=== PATIENT | male | born 1930 | race Caucasian/White ===

== ENCOUNTER 2020-05-24 08:17 | Observation (INO) | payer BC, MEDICARE ==
[2020-05-24] MEDS ORDERED: SODIUM CHLORIDE 0.9% 500 ML 500 ML IV ONE (08:23)
--- NOTE | 2020-05-24 08:29 | ED ---
General Adult HPI - General Stated complaint: Chest pain Time Seen by Provider: 05/24/20 08:22 Source: patient, RN notes reviewed, old records reviewed - History of Present Illness Initial comments: 89-year-old male history of CAD status post CABG approximately 30 years ago presenting for evaluation of chest discomfort and lightheadedness. Patient states yesterday he had an episode where he felt some chest discomfort, denies prasad pain. He states he did feel lightheaded and took a nitroglycerin at this time which made his symptoms much worse. He states he took one single nitro and with time his symptoms did resolve. He did not seek medical attention at that time. He states he feels somewhat lightheaded this morning. He denies focal numbness or weakness. Denies current chest pain or chest discomfort. Denies abdominal pain nausea or vomiting. No diarrhea. No fever. No URI symptoms. He denies dyspnea. Denies lower extremity pain or swelling. He does indicate that he sometimes over does it and does not drink enough fluids. - Related Data Home Medications Medication Instructions Recorded Confirmed Metoprolol Tartrate [Lopressor] 12.5 mg PO BID 11/05/15 05/24/20 Atorvastatin [Lipitor] 40 mg PO DAILY 05/24/20 05/24/20 Cholecalciferol [Vitamin D3 (25 1,000 unit PO DAILY 05/24/20 05/24/20 Mcg = 1000 Iu)] Lisinopril-Hctz 20-25 mg 1.5 tab PO DAILY 05/24/20 05/24/20 [Zestoretic 20-25] Prevagen 1 tab PO DAILY 05/24/20 05/24/20 Previous Rx's Medication Instructions Recorded Aspirin EC [Ecotrin Low Dose] 81 mg PO DAILY #30 tablet. 05/03/14 Nitroglycerin Sl Tabs [Nitrostat] 0.4 mg SUBLINGUAL Q5M PRN #25 tab 05/03/14 Allergies Allergy/AdvReac Type Severity Reaction Status Date / Time adhesive AdvReac Unknown Verified 05/24/20 09:05 Review of Systems ROS Statement: Those systems with pertinent positive or pertinent negative responses have been documented in the HPI. ROS Other: All systems not noted in ROS Statement are negative. Past Medical History Past Medical History: Coronary Artery Disease (CAD), Hyperlipidemia, Hypertension Additional Past Medical History / Comment(s): Bun and Creat issues,MURMUR, GOUT, UMBILICAL HERNIA, CONSTIPATION, History of Any Multi-Drug Resistant Organisms: None Reported Past Surgical History: Coronary Bypass/CABG, Heart Catheterization, Joint Replacement, Tonsillectomy Additional Past Surgical History / Comment(s): , RT HIP REPLACEMENT, TRIPLE BYPASS SX, CATARACTS, HEMRROIDECTOMY, SCHRAPNEL REMOVED 1952,RT KNEE SX HAD A S EPEARTED MUSCLE FROM HIP TO KNEE. Past Anesthesia/Blood Transfusion Reactions: No Reported Reaction Past Psychological History: No Psychological Hx Reported Past Alcohol Use History: Daily Past Drug Use History: None Reported General Exam General appearance: alert, in no apparent distress Head exam: Present: atraumatic, normocephalic Eye exam: Present: normal appearance, PERRL ENT exam: Present: mucous membranes dry Neck exam: Present: normal inspection. Absent: tenderness, meningismus Respiratory exam: Present: normal lung sounds bilaterally. Absent: respiratory distress, wheezes Cardiovascular Exam: Present: normal rhythm, bradycardia GI/Abdominal exam: Present: soft. Absent: distended, tenderness, guarding, rebound Extremities exam: Present: normal inspection, normal capillary refill. Absent: pedal edema Neurological exam: Present: alert, oriented X3 Psychiatric exam: Present: normal affect, normal mood Skin exam: Present: warm, dry, intact. Absent: cyanosis, diaphoretic Course Vital Signs 05/24/20 05/24/20 08:29 08:36 Temperature 97.7 F Pulse Rate 48 L Pulse Rate [ 48 L Apical] Respiratory 18 Rate Blood Pressure 184/83 O2 Sat by Pulse 99 Oximetry EKG Findings - EKG Comments: EKG Findings:: EKG: Sinus bradycardia, rate of 50, DE interval 164, QRS duration 98, QTC 417, no ST segment elevation. Medical Decision Making - Medical Decision Making 89-year-old male with an episode of chest discomfort yesterday as well as lightheadedness. Patient has no complaints time my evaluation. He has stable vitals, EKG showing sinus bradycardia with no ST segment elevation. Chest x-ray performed, showing hyperinflation with no acute findings. He has normal white b lood cell count, hemoglobin of 12.7. He has mild renal insufficiency creatinine 1.28. Initial troponin is negative. Electrolytes are within normal limits with the exception of mild hyperkalemia at 5.3. Given the past medical history and symptoms he will be kept in observation for cervical cardiac enzyme, telemetry, cardiology consultation. I discussed case both with Dr. Gerardo and Dr. [place] cooper for cardiology. - Lab Data Result diagrams: 05/24/20 08:25 05/24/20 08:25 Lab Results 05/24/20 05/24/20 05/24/20 Range/Units 08:25 08:25 08:25 WBC 5.6 (3.8-10.6) k/uL RBC 3.96 L (4.30-5.90) m/uL Hgb 12.7 L (13.0-17.5) gm/dL Hct 39.3 (39.0-53.0) % MCV 99.1 (80.0-100.0) fL MCH 32.1 (25.0-35.0) pg MCHC 32.4 (31.0-37.0) g/dL RDW 12.9 (11.5-15.5) % Plt Count 101 L (150-450) k/uL Neutrophils % 63 % Lymphocytes % 24 % Monocytes % 6 % Eosinophils % 3 % Basophils % 0 % Neutrophils # 3.6 (1.3-7.7) k/uL Lymphocytes # 1.4 (1.0-4.8) k/uL Monocytes # 0.3 (0-1.0) k/uL Eosinophils # 0.2 (0-0.7) k/uL Basophils # 0.0 (0-0.2) k/uL PT 9.9 (9.0-12.0) sec INR 0.9 (<1.2) APTT 23.6 (22.0-30.0) sec Sodium 138 (137-145) mmol/L Potassium 5.3 H (3.5-5.1) mmol/L Chloride 109 H (98-107) mmol/L Carbon Dioxide 22 (22-30) mmol/L Anion Gap 7 mmol/L BUN 36 H (9-20) mg/dL Creatinine 1.28 H (0.66-1.25) mg/dL Est GFR (CKD-EPI)AfAm 58 (>60 ml/min/1.73 sqM) Est GFR (CKD-EPI)NonAf 50 (>60 ml/min/1.73 sqM) Glucose 91 (74-99) mg/dL Calcium 8.9 (8.4-10.2) mg/dL Magnesium 1.9 (1.6-2.3) mg/dL Total Bilirubin 0.9 (0.2-1.3) mg/dL AST 35 (17-59) U/L ALT 25 (4-49) U/L Alkaline Phosphatase 75 (38-126) U/L Troponin I (0.000-0.034) ng/mL Total Protein 6.6 (6.3-8.2) g/dL Albumin 3.9 (3.5-5.0) g/dL 05/24/20 Range/Units 08:25 WBC (3.8-10.6) k/uL RBC (4.30-5.90) m/uL Hgb (13.0-17.5) gm/dL Hct (39.0-53.0) % MCV (80.0-100.0) fL MCH (25.0-35.0) pg MCHC (31.0-37.0) g/dL RDW (11.5-15.5) % Plt Count (150-450) k/uL Neutrophils % % Lymphocytes % % Monocytes % % Eosinophils % % Basophils % % Neutrophils # (1.3-7.7) k/uL Lymphocytes # (1.0-4.8) k/uL Monocytes # (0-1.0) k/uL Eosinophils # (0-0.7) k/uL Basophils # (0-0.2) k/uL PT (9.0-12.0) sec INR (<1.2) APTT (22.0-30.0) sec Sodium (137-145) mmol/L Potassium (3.5-5.1) mmol/L Chloride (98-107) mmol/L Carbon Dioxide (22-30) mmol/L Anion Gap mmol/L BUN (9-20) mg/dL Creatinine (0.66-1.25) mg/dL Est GFR (CKD-EPI)AfAm (>60 ml/min/1.73 sqM) Est GFR (CKD-EPI)NonAf (>60 ml/min/1.73 sqM) Glucose (74-99) mg/dL Calcium (8.4-10.2) mg/dL Magnesium (1.6-2.3) mg/dL Total Bilirubin (0.2-1.3) mg/dL AST (17-59) U/L ALT (4-49) U/L Alkaline Phosphatase (38-126) U/L Troponin I 0.019 (0.000-0.034) ng/mL Total Protein (6.3-8.2) g/dL Albumin (3.5-5.0) g/dL Disposition Clinical Impression: Chest pain, Dehydration Disposition: ADMITTED IP TO THIS [facility] Condition: Stable Is patient prescribed a controlled substance at d/c from ED?: No Referrals: Gino Callejas MD [Primary Care Provider] - 1-2 days Decision to Admit Reason: Admit from EC Decision Date: 05/24/20 Decision Time: 09:41
[2020-05-24 08:33] LABS: Basophils % (A) 0 %; Eosinophils # (A) 0.2 k/uL (0-0.7); Eosinophils % (A) 3 %; HCT 39.3 % (39.0-53.0); HGB 12.7 gm/dL (13.0-17.5); Lymphocytes # (A) 1.4 k/uL (1.0-4.8); Lymphocytes % (A) 24 %; MCH 32.1 pg (25.0-35.0); MCHC 32.4 g/dL (31.0-37.0); MCV 99.1 fL (80.0-100.0); Mean Platelet Volume 10.7; Monocytes # (A) 0.3 k/uL (0-1.0); Monocytes % (A) 6 %; Neutrophils # (A) 3.6 k/uL (1.3-7.7); Neutrophils % (A) 63 %; Platelet Count 101 k/uL (150-450); RBC 3.96 m/uL (4.30-5.90); RDW 12.9 % (11.5-15.5); WBC 5.6 k/uL (3.8-10.6)
[2020-05-24 08:46] LABS: INR 0.9 (<1.2); Partial Thromboplastin Time 23.6 sec (22.0-30.0); Prothrombin Time 9.9 sec (9.0-12.0)
[2020-05-24 08:47] LABS: Albumin 3.9 g/dL (3.5-5.0); Calcium 8.9 mg/dL (8.4-10.2); Magnesium 1.9 mg/dL (1.6-2.3); Potassium 5.3 mmol/L (3.5-5.1); Total Bilirubin 0.9 mg/dL (0.2-1.3); Total Protein 6.6 g/dL (6.3-8.2)
--- NOTE | 2020-05-24 08:52 | XR ---
EXAMINATION TYPE: XR chest 2V DATE OF EXAM: 05/24/2020 COMPARISON: 11/05/2015 INDICATION: Chest pain, dysrhythmia TECHNIQUE: Frontal and lateral views of the chest are obtained. FINDINGS: The heart size is normal. The pulmonary vasculature is normal. The lungs are clear. Hyperinflation flattening the diaphragms can be compatible COPD. Sternotomy wire s are present from prior CABG. IMPRESSION: 1. No acute pulmonary process. 2. COPD
[2020-05-24] MEDS ORDERED: ASPIRIN 325 MG TAB PO STA (09:37)
[2020-05-24] MEDS ORDERED: ACETAMINOPHEN TAB 325 MG TAB PO PRN (09:38)
[2020-05-24] MEDS ORDERED: NALOXONE 0.4 MG/ML 1 ML VIAL IV PRN (09:38)
[2020-05-24] MEDS: SODIUM CHLORIDE 0.9% 1,000 ML IV SCH (10:16)
--- NOTE | 2020-05-24 11:35 | CONS ---
CONSULTATION Mr. Xie is an 89-year-old male with a known history of coronary artery disease who presented to the hospital with symptoms of dizziness. His symptoms started yesterday when he was eating lunch, felt dizzy, so he took a nitroglycerin. He had no chest discomfort at all and his breathing has been stable. Subsequently, today after he woke up, he felt somewhat dizzy, not feeling well, but with no chest pain. No change in his breathing. He checked his blood pressure, was on the low side and he came to the hospital. His activity level has been stable without any significant changes. He denies any peripheral edema. No palpitation. He felt almost syncopal after he took his nitroglycerin, but did not feel full syncopal episode. He has a known history of coronary artery disease, status post coronary artery bypass grafting, performed in 1988. At that time he received a MOHAMUD to LAD, saphenous vein graft to the ramus, circumflex and RCA. His most recent cardiac catheterization was performed 2014, was found to have significant distal left main, 100% proximal circumflex, 100% proximal PDA, patent graft to the LAD, PDA and the obtuse marginal branch with occluded ramus intermedius. His last echocardiogram was performed in April of this year that revealed a preserved systolic function with evidence of mild aortic regurgitation, moderate aortic stenosis with a mean gradient of 25 mmHg. His coronary risk factors are remarkable for hyperlipidemia. He is nondiabetic, non smoker and hypertension. MEDICATION: His medications at home included aspirin, lisinopril 80 mg daily, lisinopril HCT 20-25 mg daily, metoprolol 25 mg daily, probiotic, and vitamin D. REVIEW OF SYSTEMS: RESPIRATORY SYSTEM: He has no documented history of asthma, emphysema or bronchitis. GI SYSTEM: No recent GI bleeding, no peptic ulcer disease. SYSTEM: No dysuria or hematuria. NERVOUS SYSTEM: No history of stroke or seizure. PHYSICAL EXAMINATION: He is an 89-year-old male, alert, oriented, in no apparent distress. Blood pressure running in the 150s to 180s with a heart in the 40s. HEAD: Normocephalic. EYES: Sclerae nonicteric. NECK: Good upstroke, no bruit. LUNGS: Clear to auscultation. HEART: Regular rate and rhythm. S1, S2. No S3 with systolic ejection murmur, heard at the base. No diastolic murmur, no rub. ABDOMEN: Soft, nontender. Positive bowel sounds, no organomegaly. EXTREMITIES: No edema, intact pulses. LAB DATA: Revealed potassium 5.3, BUN and creatinine 36 and 1.28. Troponin of 0.019. Hemoglobin of 12.7. EKG revealed sinus bradycardia, rate of 50, normal axis and intervals. No acute changes. Chest x-ray shows no acute infiltrate. IMPRESSION: 1. Episode of dizziness, probably exacerbated by the nitroglycerin. 2. History of coronary artery disease, status post coronary bypass grafting with no evidence of recurrent angina. 3. Dehydration. 4. History of moderate aortic stenosis. 5. Hypertension. 6. Hyperlipidemia. 7. Bradycardia. RECOMMENDATION: From the cardiac standpoint, I will hold his beta kamala. Patient will be hydrated. I will restart the lisinopril, but will hold his diuretics. Will follow his renal function and depending on his progress, further recommendation will be made. Thank you for this consult. Will follow with you. ELLEN / MICHAELN: [id number] /
[2020-05-24] MEDS: ATORVASTATIN 40 MG TAB PO SCH (12:17)
[2020-05-24] MEDS: LISINOPRIL 10 MG TAB PO SCH ×2 (13:36→20:44)
--- NOTE | 2020-05-24 19:04 | P.HPIM ---
History of Present Illness H&P Date: 05/24/20 Chief Complaint: Dizziness Patient is a 89-year-old male with a known history of coronary artery bypass graft about 30 years ago, hypertension, hyperlipidemia came to ER with complaints of dizziness and lightheadedness. Patient states that he usually gets dizzy after moving grass and shoveling. Yesterday while he was having lunch he bent over to get some soup when he felt sudden dizziness. Patient did take nitro pill thinking that it may help him, which made him worse and he knocked backwards. Again today morning after having coffee patient felt like losing strength and blood pressure was checked at that time found to be 90/40 and patient felt very weak and shaky which made him to come to ER. Patient did felt some chest discomfort. Currently denies any chest pain or shortness of. Denied any nausea vomiting abdominal pain or diarrhea. No recent illnesses. No dysuria or hematuria. Denied any leg swelling. Laboratory data showed deletion 5.6, hemoglobin 12.7, platelets 101 Sodium 138, potassium to 5.3, Coreg 23, BUE and 36 and creatinine 1.28 Troponin 0.019 Living assessment elevated next and magnesium is 1.9 Chest x-ray showed no acute pulmonary process. COPD EKG showed sinus bradycardia with heart rate 50 On admission blood pressure is 184/83, improved to 152/79 and heart rate 48 Review of Systems Constitutional: Patient denies any fever or chills . generalized weakness noweight loss. Abdomen: Patient denied nausea vomiting and diarrhea and abdominal pain. Cardiovascular: Patient denies any chest pain or short of breath no palpitations. Respiratory: patient denied any cough is from production. No shortness of breath Neurologic: Patient denied any numbness or tingling headache. Dizziness and lightheadedness. Musculoskeletal: Patient denies any complaints of joint swelling or deformity. Skin: Negative Psychiatric: Negative Endocrine: No heat or cold intolerance. No recent weight gain. Genitourinary: No dysuria or hematuria. All other 14 point ROS negative except the above Past Medical History Past Medical History: Coronary Artery Disease (CAD), Hyperlipidemia, Hypertension Additional Past Medical History / Comment(s): Bun and Creat issues,MURMUR, GOUT, UMBILICAL HERNIA, CONSTIPATION, History of Any Multi-Drug Resistant Organisms: None Reported Past Surgical History: Coronary Bypass/CABG, Heart Catheterization, Joint Replacement, Tonsillectomy Additional Past Surgical History / Comment(s): , RT HIP REPLACEMENT, TRIPLE BYPASS SX, CATARACTS, HEMRROIDECTOMY, SCHRAPNEL REMOVED 195,RT KNEE SX HAD A SEPEARTED MUSCLE FROM HIP TO KNEE. Past Anesthesia/Blood Transfusion Reactions: No Reported Reaction Past Psychological History: No Psychological Hx Reported Past Alcohol Use History: Daily Past Drug Use History: None Reported - Past Family History Mother Family Medical History: Coronary Artery Disease (CAD) Father Family Medical History: No Reported History Medications and Allergies Home Medications Medication Instructions Recorded Confirmed Type Aspirin EC [Ecotrin Low Dose] 81 mg PO DAILY #30 tablet. 05/03/14 05/24/20 Rx Nitroglycerin Sl Tabs [Nitrostat] 0.4 mg SUBLINGUAL Q5M PRN #25 tab 05/03/14 05/24/20 Rx Metoprolol Tartrate [Lopressor] 12.5 mg PO BID 11/05/15 05/24/20 History Atorvastatin [Lipitor] 40 mg PO DAILY 05/24/20 05/24/20 History Cholecalciferol [Vitamin D3 (25 1,000 unit PO DAILY 05/24/20 05/24/20 History Mcg = 1000 Iu)] Lisinopril-Hctz 20-25 mg 1.5 tab PO DAILY 05/24/20 05/24/20 History [Zestoretic 20-25] Prevagen 1 tab PO DAILY 05/24/20 05/24/20 History Allergies Allergy/AdvReac Type Severity Reaction Status Date / Time adhesive AdvReac Unknown Verified 05/24/20 09:05 Physical Exam Vitals: Vital Signs Temp Pulse Pulse Resp BP Pulse Ox 05/24/20 10:23 97.7 F 48 L 18 152/79 97 05/24/20 08:36 48 L 05/24/20 08:29 97.7 F 48 L 18 184/83 99 Intake and Output 05/23/20 05/24/20 05/24/20 22:59 06:59 14:59 Other: Weight 93.44 kg PHYSICAL EXAMINATION: Patient is lying in the bed comfortably, no acute distress, awake alert and oriented.. HEENT: Normocephalic. Neck is supple. Pupils reactive. Nostrils clear. Oral cavity is moist. Ears reveal no drainage. Neck reveals no JVD, carotid bruits, or thyromegaly. CHEST EXAMINATION: Trachea is central. Symmetrical expansion. Lung wynn clear to auscultation and percussion. CARDIAC: Normal S1, S2 with no gallops. Systolic murmur. ABDOMEN: Soft. Bowel sounds normal. No organomegaly. No abdominal bruits. Extremities: reveal no edema. No clubbing or cyanosis Neurologically awake, alert, oriented x3 with well-coordinated movements. No focal deficits noted Skin: No rash or skin lesions. Psychiatric: Coperative. Nonsuicidal Musculoskeletal: No joint swelling or deformity. Normal range of motion. Results CBC & Chem 7: 05/24/20 08:25 05/24/20 08:25 Labs: Abnormal Lab Results - Last 24 Hours (Table) 05/24/20 05/24/20 Range/Units 08:25 08:25 RBC 3.96 L (4.30-5.90) m/uL Hgb 12.7 L (13.0-17.5) gm/dL Plt Count 101 L (150-450) k/uL Potassium 5.3 H (3.5-5.1) mmol/L Chloride 109 H (98-107) mmol/L BUN 36 H (9-20) mg/dL Creatinine 1.28 H (0.66-1.25) mg/dL Thrombosis Risk Factor Assmnt - DVT/VTE Prophylaxis DVT/VTE Prophylaxis: Pharmacologic Prophylaxis ordered Assessment and Plan Assessment: Dizziness and lightheadedness likely due to medication use as well as bradycardia. Dehydration and volume depletion with elevated BUN level Mild acute kidney injury with creatinine level 1.28 History of coronary artery disease status post CABG 30 years ago Hypertension Hyperlipidemia History of heart normal History of gout History of alcohol use DVT prophylaxis heparin subcu Plan: Patient will be continued on gentle hydration. Encourage oral intake. Metoprolol and lisinopril/hydrochlorothiazide is on hold. Monitor electrolytes. Cardiology was consulted. Further recommendations based on the clinical course. Time with Patient: Greater than 30
[2020-05-24] MEDS ORDERED: LISINOPRIL 10 MG TAB PO SCH (21:00)
[2020-05-25] MEDS: SODIUM CHLORIDE 0.9% 1,000 ML IV SCH (00:08)
[2020-05-25 04:16] VITALS: PULSE 56
[2020-05-25 07:56] LABS: Calcium 8.9 mg/dL (8.4-10.2); Potassium 5.1 mmol/L (3.5-5.1)
[2020-05-25] MEDS: LISINOPRIL 10 MG TAB PO SCH (08:32)
[2020-05-25] MEDS: ATORVASTATIN 40 MG TAB PO SCH (08:32)
[2020-05-25 08:38] VITALS: BP 171/87; RESP 18; TEMP 97.7
[2020-05-25] MEDS ORDERED: CHOLECALCIFEROL 1,000 UNIT TAB PO SCH (09:00)
[2020-05-25] MEDS ORDERED: ASPIRIN 81 MG PO SCH (09:00)
--- NOTE | 2020-05-25 09:33 | PN ---
PROGRESS NOTE Mr. Xie is an 89-year-old male with known history of coronary artery disease who presented with symptoms of dizziness, worse after taking nitroglycerin sublingually. He is feeling better today. His breathing is stable. He denies any chest pain. He denies any dizziness, palpitation. He denies any nausea. He has been ambulating without difficulty. He continues to be on aspirin once a day, lisinopril 10 mg twice a day, Lipitor 40 mg daily. PHYSICAL EXAMINATION: Blood pressure running in the 150s with a heart rate in the 50s. LUNGS: Clear. HEART: Regular rate and rhythm, S1, S2. No S3 with systolic murmur, ejection type. No diastolic murmur, no rub. ABDOMEN: Soft, nontender. EXTREMITIES: No edema. LAB DATA: Are pending from today. His troponins are 0.019, 0.014 and 0.013. IMPRESSION: 1. Dizziness, appears to be related to the nitroglycerin. No evidence of arrhythmia. 2. History of coronary artery disease, status post coronary artery bypass grafting. No evidence of angina pectoris. 3. Dehydration. 4. Hypertension. RECOMMENDATION: I will review the results of his lab data and depending on that, I will adjust the dose of lisinopril. I will stay off the metoprolol at this time. Increase his activity. If he remains stable, I would expect he should be able to be discharged home today. ELLEN / DES: [id number] /
== END 2020-05-25 12:19 | disposition home or self-care (01) ==
LOC: EC 08:17 → 3NCARDOBS 09:38
PROVIDERS: ADMIT Internal Medicine; ATTEND Internal Medicine
DX: E86.0 Dehydration (principal); I25.10 Atherosclerotic heart disease of native coronary artery without angina pectoris; I10 Essential (primary) hypertension; R00.1 Bradycardia, unspecified; R01.1 Cardiac murmur, unspecified; E78.5 Hyperlipidemia, unspecified; M10.9 Gout, unspecified; K42.9 Umbilical hernia without obstruction or gangrene; K59.00 Constipation, unspecified; E87.5 Hyperkalemia; J44.9 Chronic obstructive pulmonary disease, unspecified; N17.9 Acute kidney failure, unspecified; I35.0 Nonrheumatic aortic (valve) stenosis; Z95.1 Presence of aortocoronary bypass graft; Z96.641 Presence of right artificial hip joint; Z98.49 Cataract extraction status, unspecified eye; Z98.890 Other specified postprocedural states; Z82.49 Family history of ischemic heart disease and other diseases of the circulatory system; Z79.82 Long term (current) use of aspirin; Z79.899 Other long term (current) drug therapy
CPT/HCPCS: 96360; 99285; 36415; 93005; 80053; 80048; 83735; 84484; 85025; 85610; 85730; 71046; G0378 ×2; U0003

== ENCOUNTER 2020-06-23 14:39 | Observation (INO) | payer MEDICARE ==
[2020-06-23] MEDS ORDERED: diphenhydrAMINE 50 MG/ML 1 ML VIAL IVP STA (14:48)
[2020-06-23] MEDS ORDERED: methylPREDNISolone SOD SUCCI 125 MG/2 ML VIAL IV STA (14:48)
[2020-06-23] MEDS ORDERED: EPINEPHrine 1 MG/ML 1 ML AMP IM STA (14:49)
--- NOTE | 2020-06-23 14:57 | ED ---
General Adult HPI - General Chief complaint: Allergic Reaction Stated complaint: Allergic Reaction Time Seen by Provider: 06/23/20 14:45 Source: patient, EMS, RN notes reviewed, old records reviewed Mode of arrival: EMS Limitations: no limitations - History of Present Illness Initial comments: This is an 89-year-old male who presents to the emergency department complaining that he was stung by a bee in the right ear. Patient states about [address] he was stung he felt lightheaded and fell to the ground. Patient states he has some skin tears on his arms. Patient states his tongue got swollen and he feels tight in his chest. Patient states she did not pass out completely but he was very lightheaded and a little confused when she was on the ground. Patient denies headache patient denies numbness or weakness. Patient denies chest pain or palpitations. Patient denies shortness of breath. Patient states currently he feels a little tightness chest and has tongue swelling. - Related Data Home Medications Medication Instructions Recorded Confirmed Atorvastatin [Lipitor] 40 mg PO DAILY 05/24/20 05/24/20 Cholecalciferol [Vitamin D3 (25 1,000 unit PO DAILY 05/24/20 05/24/20 Mcg = 1000 Iu)] Prevagen 1 tab PO DAILY 05/24/20 05/24/20 Previous Rx's Medication Instructions Recorded Aspirin EC [Ecotrin Low Dose] 81 mg PO DAILY #30 tablet. 05/03/14 Nitroglycerin Sl Tabs [Nitrostat] 0.4 mg SUBLINGUAL Q5M PRN #25 tab 05/03/14 lisinopriL [Zestril] 10 mg PO BID #180 tab 05/25/20 Allergies Allergy/AdvReac Type Severity Reaction Status Date / Time bee venom protein (honey bee) Allergy Anaphylaxis Verified 06/23/20 14:48 adhesive AdvReac Unknown Verified 05/24/20 09:05 Review of Systems ROS Statement: Those systems with pertinent positive or pertinent negative responses have been documented in the HPI. ROS Other: All systems not noted in ROS Statement are negative. Past Medical History Past Medical History: Coronary Artery Disease (CAD), Hyperlipidemia, Hypertension Additional Past Medical History / Comment(s): Bun and Creat issues,MURMUR, GOUT, UMBILICAL HERNIA, CONSTIPATION, History of Any Multi-Drug Resistant Organisms: None Reported Past Surgical History: Coronary Bypass/CABG, Heart Catheterization, Joint Replacement, Tonsillectomy Additional Past Surgical History / Comment(s): , RT HIP REPLACEMENT, TRIPLE BYPASS SX, CATARACTS, HEMRROIDECTOMY, SCHRAPNEL REMOVED 1952,RT KNEE SX HAD A S EPEARTED MUSCLE FROM HIP TO KNEE. Past Anesthesia/Blood Transfusion Reactions: No Reported Reaction Past Psychological History: No Psychological Hx Reported Smoking Status: Former smoker Past Alcohol Use History: Daily Past Drug Use History: None Reported - Past Family History Mother Family Medical History: Coronary Artery Disease (CAD) Father Family Medical History: No Reported History General Exam - General Exam Comments Initial Comments: GENERAL: Patient is well-developed and well-nourished. Patient is nontoxic and well- hydrated and is in mild distress. ENT: Neck is soft and supple. No significant lymphadenopathy is noted. Oropharynx is clear. Patient's tongue is swollen Moist mucous membranes. Neck has full range of motion without eliciting any pain. EYES: The sclera were anicteric and conjunctiva were pink and moist. Extraocular movements were intact and pupils were equal round and reactive to light. Eyelids were unremarkable. PULMONARY: Unlabored respirations. Good breath sounds bilaterally. No audible rales rhonchi or wheezing was noted. CARDIOVASCULAR: There is a regular rate and rhythm without any murmurs gallops or rubs. ABDOMEN: Soft and nontender with normal bowel sounds. SKIN: Skin is clear with no lesions or rashes and otherwise unremarkable. NEUROLOGIC: Patient is alert and oriented x3. Cranial nerves II through XII are grossly intact. Motor and sensory are also intact. Normal speech, volume and content. Symmetrical smile. MUSCULOSKELETAL: Normal extremities with adequate strength and full range of motion. LYMPHATICS: No significant lymphadenopathy is noted PSYCHIATRIC: Normal psychiatric evaluation. Limitations: no limitations Course Vital Signs 06/23/20 06/23/20 14:43 15:40 Temperature 98.2 F Pulse Rate 76 57 L Respiratory 18 18 Rate Blood Pressure 120/51 120/51 O2 Sat by Pulse 96 120 H Oximetry Medical Decision Making - Medical Decision Making EKG shows sinus rhythm at 74 bpm OH interval 142 QRS is 88 QT interval 44 QTC is 448. EKG shows no ST segment elevation or depression. - Lab Data Result diagrams: 06/23/20 15:14 06/23/20 15:14 Lab Results 0806/23/20 06/23/20 Range/Units 15:14 15:14 15:14 WBC 6.3 (3.8-10.6) k/uL RBC 3.70 L (4.30-5.90) m/uL Hgb 12.0 L (13.0-17.5) gm/dL Hct 36.9 L (39.0-53.0) % MCV 99.8 (80.0-100.0) fL MCH 32.4 (25.0-35.0) pg MCHC 32.4 (31.0-37.0) g/dL RDW 13.0 (11.5-15.5) % Plt Count 118 L (150-450) k/uL Neutrophils % 69 % Lymphocytes % 23 % Monocytes % 4 % Eosinophils % 2 % Basophils % 0 % Neutrophils # 4.3 (1.3-7.7) k/uL Lymphocytes # 1.4 (1.0-4.8) k/uL Monocytes # 0.2 (0-1.0) k/uL Eosinophils # 0.1 (0-0.7) k/uL Basophils # 0.0 (0-0.2) k/uL Sodium 137 (137-145) mmol/L Potassium 4.6 (3.5-5.1) mmol/L Chloride 109 H (98-107) mmol/L Carbon Dioxide 24 (22-30) mmol/L Anion Gap 4 mmol/L BUN 28 H (9-20) mg/dL Creatinine 1.26 H (0.66-1.25) mg/dL Est GFR (CKD-EPI)AfAm 59 (>60 ml/min/1.73 sqM) Est GFR (CKD-EPI)NonAf 51 (>60 ml/min/1.73 sqM) Glucose 118 H (74-99) mg/dL Calcium 8.7 (8.4-10.2) mg/dL Total Bilirubin 0.9 (0.2-1.3) mg/dL AST 30 (17-59) U/L ALT 19 (4-49) U/L Alkaline Phosphatase 76 (38-126) U/L Troponin I 0.047 H* (0.000-0.034) ng/mL Total Protein 5.8 L (6.3-8.2) g/dL Albumin 3.4 L (3.5-5.0) g/dL Critical Care Time Critical Care Time: Yes Total Critical Care Time: 35 Disposition Clinical Impression: Anaphylaxis, Elevated troponin Disposition: ADMITTED IP TO THIS [facility] Referrals: Gino Callejas MD [Primary Care Provider] - 1-2 days Time of Disposition: 17:02
[2020-06-23 15:31] LABS: Basophils % (A) 0 %; Eosinophils # (A) 0.1 k/uL (0-0.7); Eosinophils % (A) 2 %; HCT 36.9 % (39.0-53.0); Lymphocytes # (A) 1.4 k/uL (1.0-4.8); Lymphocytes % (A) 23 %; MCH 32.4 pg (25.0-35.0); MCHC 32.4 g/dL (31.0-37.0); MCV 99.8 fL (80.0-100.0); Mean Platelet Volume 10.6; Monocytes # (A) 0.2 k/uL (0-1.0); Monocytes % (A) 4 %; Neutrophils # (A) 4.3 k/uL (1.3-7.7); Neutrophils % (A) 69 %; Platelet Count 118 k/uL (150-450); WBC 6.3 k/uL (3.8-10.6)
[2020-06-23 15:42] LABS: Albumin 3.4 g/dL (3.5-5.0); Calcium 8.7 mg/dL (8.4-10.2); Potassium 4.6 mmol/L (3.5-5.1); Total Bilirubin 0.9 mg/dL (0.2-1.3); Total Protein 5.8 g/dL (6.3-8.2)
[2020-06-23] MEDS ORDERED: NITROGLYCERIN SL TABS 0.4 MG TAB SUBLINGUAL PRN (17:02)
[2020-06-23] MEDS ORDERED: diphenhydrAMINE 50 MG/ML 1 ML VIAL IVP PRN (18:43)
[2020-06-23] MEDS: NITROGLYCERIN OINT 1 INCH/GM PACKET TOPICAL SCH ×2 (19:05→22:56)
[2020-06-23 20:45] LABS: Glucose,Whole Blood 191 mg/dL (75-99)
[2020-06-23] MEDS: methylPREDNISolone SOD SUCCI 125 MG/2 ML VIAL IV SCH (22:55)
[2020-06-24 04:36] LABS: Cholesterol 103 mg/dL (<200); HDL Cholesterol 36 mg/dL (40-60); LDL Cholesterol,Calculated 46 mg/dL (0-99); Triglycerides 107 mg/dL (<150)
[2020-06-24 05:51] LABS: Glucose,Whole Blood 144 mg/dL (75-99)
[2020-06-24] MEDS: NITROGLYCERIN OINT 1 INCH/GM PACKET TOPICAL SCH (06:01)
[2020-06-24] MEDS: methylPREDNISolone SOD SUCCI 125 MG/2 ML VIAL IV SCH ×3 (06:23→17:18)
[2020-06-24] MEDS: INSULIN ASPART (NovoLOG) 100 UNIT/ML VIAL SQ SCH ×4 (06:31→20:51)
--- NOTE | 2020-06-24 08:47 | P.HPIM ---
History of Present Illness This is a pleasant 89 years old male with past medical history of coronary artery disease status post bypass graft about 30 years ago, hypertension, hyperlipidemia Was recently discharged from hospital from 05/24-05/25 for dizziness And his been evaluated by inclusion paraeducator at that time. The presents because his stomach with a be behind his ear and fell almost passed out with tongue swelling. Patient was doing his lawn, when he got stung by a bee right above his right ear, shortly after that he crashed on the floor and passed out and he had to crawl to his house , he replaced his left forearm which is in bandage now, he managed to get up in his house and drove his car to his daughter who called the ambulance for him. During the incident patient denies chest pain, no dyspnea, no vomiting or palpitation. He had some functional and at that time. Currently he denies chest pain or dyspnea or any other symptoms, he states his back to his normal self and he wants to be discharged, he wants to sign himself out including imaging is not his discharge today, risk of leaving AMA is explained for the patient including but not limited to the risk of and he verbalized understanding and acceptance vitals are stable. Unremarkable CBC and BMP except for mildly elevated creatinine at 1.26, baseline is normal at 1.23. Troponin is elevated 0.04, 0.05 and 0.04. EKG showing sinus rhythm with marked sinus arrhythmia In the ED patient started on some Medrol 60 mg and Versed 1 dose of epinephrine 1 mg. And be has bee added to his ALLERGY list Review of Systems CONSTITUTIONAL: No fever, no malaise, no fatigue. HEENT: No recent visual problems or hearing problems. Denied any sore throat. CARDIOVASCULAR: No orthopnea, PND, no palpitations, no syncope. PULMONARY: No shortness of breath, no cough, no hemoptysis. GASTROINTESTINAL: No diarrhea, no nausea, no vomiting, no abdominal pain. N ormoactive bowel sounds. NEUROLOGICAL: No headaches, no weakness, no numbness. HEMATOLOGICAL: Denies any bleeding or petechiae. GENITOURINARY: Denies any burning micturition, frequency, or urgency. MUSCULOSKELETAL/RHEUMATOLOGICAL: Denies any joint pain, swelling, or any muscle pain. ENDOCRINE: Denies any polyuria or polydipsia. Past Medical History Past Medical History: Coronary Artery Disease (CAD), Hyperlipidemia, Hypertension Additional Past Medical History / Comment(s): Bun and Creat issues,MURMUR, GOUT, UMBILICAL HERNIA, CONSTIPATION, History of Any Multi-Drug Resistant Organisms: None Reported Past Surgical History: Coronary Bypass/CABG, Heart Catheterization, Joint Replacement, Tonsillectomy Additional Past Surgical History / Comment(s): , RT HIP REPLACEMENT, TRIPLE BYPASS SX, CATARACTS, HEMRROIDECTOMY, SCHRAPNEL REMOVED 1952,RT KNEE SX HAD A SEPEARTED MUSCLE FROM HIP TO KNEE. Past Anesthesia/Blood Transfusion Reactions: No Reported Reaction Past Psychological History: No Psychological Hx Reported Smoking Status: Former smoker Past Alcohol Use History: Daily Past Drug Use History: None Reported - Past Family History Mother Family Medical History: Coronary Artery Disease (CAD) Father Family Medical History: No Reported History Medications and Allergies Home Medications Medication Instructions Recorded Confirmed Type Aspirin EC [Ecotrin Low Dose] 81 mg PO DAILY #30 tablet. 05/03/14 06/23/20 Rx Nitroglycerin Sl Tabs [Nitrostat] 0.4 mg SUBLINGUAL Q5M PRN #25 tab 05/03/14 06/23/20 Rx Atorvastatin [Lipitor] 40 mg PO DAILY 05/24/20 06/23/20 History Cholecalciferol [Vitamin D3 (25 1,000 unit PO DAILY 05/24/20 06/23/20 History Mcg = 1000 Iu)] Prevagen 1 tab PO DAILY 05/24/20 06/23/20 History lisinopriL [Zestril] 10 mg PO DAILY 06/23/20 06/23/20 History Allergies Allergy/AdvReac Type Severity Reaction Status Date / Time bee venom protein (honey bee) Allergy Anaphylaxis Verified 06/23/20 18:02 adhesive AdvReac Unknown Verified 06/23/20 18:02 Physical Exam Vitals: Vital Signs Temp Pulse Pulse Resp BP BP Pulse Ox 06/24/20 04:00 97.5 F L 60 18 157/85 95 06/24/20 00:00 97.6 F 60 18 135/69 97 06/23/20 20:37 97.8 F 73 18 144/77 97 06/23/20 19:02 73 18 145/89 97 06/23/20 15:40 57 L 18 120/51 96 06/23/20 14:43 98.2 F 76 18 120/51 96 Intake and Output 06/23/20 06/24/20 06/24/20 22:59 06:59 14:59 Other: Voiding Method Toilet Toilet # Voids 1 Weight 93.44 kg 89.4 kg GENERAL: The patient is alert and oriented x3, not in any acute distress. Well developed, well nourished. HEENT: Pupils are round and equally reacting to light. EOMI. No scleral icterus. No conjunctival pallor. Normocephalic, atraumatic. No pharyngeal erythema. No thyromegaly. CARDIOVASCULAR: S1 and S2 present. No murmurs, rubs, or gallops. PULMONARY: Chest is clear to auscultation, no wheezing or crackles. ABDOMEN: Soft, nontender, nondistended, normoactive bowel sounds. No palpable organomegaly. MUSCULOSKELETAL: No joint swelling or deformity. EXTREMITIES: No cyanosis, clubbing, or pedal edema. NEUROLOGICAL: Gross neurological examination did not reveal any focal deficits. SKIN: No rashes. No petechiae Results CBC & Chem 7: 06/23/20 15:14 06/23/20 15:14 Labs: Abnormal Lab Results - Last 24 Hours (Table) 06/23/20 06/23/20 06/23/20 Range/Units 03:45 15:14 15:14 RBC 3.70 L (4.30-5.90) m/uL Hgb 12.0 L (13.0-17.5) gm/dL Hct 36.9 L (39.0-53.0) % Plt Count 118 L (150-450) k/uL Chloride 109 H (98-107) mmol/L BUN 28 H (9-20) mg/dL Creatinine 1.26 H (0.66-1.25) mg/dL Glucose 118 H (74-99) mg/dL POC Glucose (mg/dL) (75-99) mg/dL Troponin I (0.000-0.034) ng/mL Total Protein 5.8 L (6.3-8.2) g/dL Albumin 3.4 L (3.5-5.0) g/dL HDL Cholesterol 36 L (40-60) mg/dL 06/23/20 06/23/20 06/23/20 Range/Units 15:14 18:17 20:37 RBC (4.30-5.90) m/uL Hgb (13.0-17.5) gm/dL Hct (39.0-53.0) % Plt Count (150-450) k/uL Chloride (98-107) mmol/L BUN (9-20) mg/dL Creatinine (0.66-1.25) mg/dL Glucose (74-99) mg/dL POC Glucose (mg/dL) (75-99) mg/dL Troponin I 0.047 H* 0.055 H* 0.044 H* (0.000-0.034) ng/mL Total Protein (6.3-8.2) g/dL Albumin (3.5-5.0) g/dL HDL Cholesterol (40-60) mg/dL 06/23/20 06/24/20 Range/Units 20:44 05:50 RBC (4.30-5.90) m/uL Hgb (13.0-17.5) gm/dL Hct (39.0-53.0) % Plt Count (150-450) k/uL Chloride (98-107) mmol/L BUN (9-20) mg/dL Creatinine (0.66-1.25) mg/dL Glucose (74-99) mg/dL POC Glucose (mg/dL) 191 H 144 H (75-99) mg/dL Troponin I (0.000-0.034) ng/mL Total Protein (6.3-8.2) g/dL Albumin (3.5-5.0) g/dL HDL Cholesterol (40-60) mg/dL Thrombosis Risk Factor Assmnt - Choose All That Apply Any of the Below Risk Factors Present?: No Other Risk Factors: Yes Each Risk Factor Represents 3 Points: Age 75 years or older Other congenital or acquired thrombophilia - If yes, enter type in comment: No Thrombosis Risk Factor Assessment Total Risk Factor Score: 3 Thrombosis Risk Factor Assessment Level: Moderate Risk Assessment and Plan Assessment: anaphylaxis secondary to bee sting elevated troponin, rule out cardiac causes Marked sinus arrhythmia Coronary artery disease, status post bypass 3 years ago Hypertension Hyperlipidemia Plan: This is a pleasant 89 years old male who presents with possible anaphylaxis and elevated troponin . We'll do serial troponins, EKG consult. Continue with steroids . Patient is counseled to keep away from these and protect himself and also counseled about adrenalin pen. Continue same treatment. Continue with symptomatic treatment. Resume home medication. Monitor lytes and vitals. DVT and GI prophylaxis. Further recommendations of the clinical course of the patient DVT prophylaxis: Subcutaneous heparin GI Prophylaxis: Pepcid
[2020-06-24] MEDS ORDERED: FAMOTIDINE 20 MG/2 ML VIAL IV SCH (09:00)
[2020-06-24] MEDS ORDERED: ASPIRIN 325 MG TAB PO SCH (09:00)
[2020-06-24] MEDS: ATORVASTATIN 40 MG TAB PO SCH (09:23)
[2020-06-24] MEDS: lisinopriL 10 MG TAB PO SCH (09:23)
[2020-06-24] MEDS: ASPIRIN 81 MG PO SCH (09:23)
[2020-06-24] MEDS: CHOLECALCIFEROL 1,000 UNIT TAB PO SCH (09:23)
[2020-06-24] MEDS: HEPARIN SODIUM,PORCINE 5,000 UNIT/ML 1 ML VIAL SQ SCH ×2 (09:25→20:51)
--- NOTE | 2020-06-24 12:04 | CONS ---
CONSULTATION Mr. Xie is an 89-year-old male with a known history of coronary artery disease who presented after a bee sting. Apparently, he was working outdoors when he got stung by a bee, started to have headache, dizziness and tingling in the arm, went home, was starting to have generalized weakness and then he fell to the ground. He thinks he had a syncopal episode, very brief. He had some chest discomfort and subsequently came into the emergency room. He is pain free at this time and quite anxious to go home. His blood tests revealed mild troponin elevation. He has a known history of coronary artery disease, status post coronary artery bypass grafting done in 1988. His most recent cardiac catheterization was done in 2014 that showed an 80% distal left main, chronically occluded left circumflex and PDA with patent MOHAMUD to LAD, patent saphenous vein graft to the PDA and to the obtuse marginal branch. His left ventricular systolic function by echocardiography was preserved in the past. The patient is active physically, denies any significant exertional chest pain on a regular basis. Denies any palpitation. He has some dizziness. No PND. No orthopnea. No peripheral edema. His activity level has been relatively stable. His coronary risk factors are remarkable for hyperlipidemia, he is a nonsmoker, nondiabetic. MEDICATION: At home included lisinopril 10 mg daily, aspirin once a day, Lipitor 40 mg daily, vitamin D. REVIEW OF SYSTEMS: He has no documented history of asthma, emphysema or bronchitis. GI SYSTEM: No recent GI bleeding, no peptic ulcer disease. SYSTEM: No dysuria or hematuria. NERVOUS SYSTEM: No stroke or seizure. PHYSICAL EXAMINATION: He is an 89-year-old male, alert, oriented, in no apparent distress. Blood pressure running in the 130s to 150s with a heart rate in the 60s. HEAD: Normocephalic. EYES: Sclerae nonicteric. NECK: Good upstroke, no bruit, no jugular venous distention. LUNGS: Clear to auscultation. HEART: Regular rate and rhythm, S1, S2. No S3 with systolic ejection murmur heard at the base. No diastolic murmur, no rub. ABDOMEN: Soft, nontender, positive bowel sounds, no organomegaly. EXTREMITIES: No edema, intact pulses. LAB DATA: Revealed troponin 0.047, 0.055 and 0.044. Cholesterol 103, LDL of 46, BUN and creatinine 28 and 1.26. Hemoglobin of 12. EKG revealed a sinus mechanism with sinus arrhythmia, but no acute ST-segment changes. IMPRESSION: 1. Episode of chest discomfort with possible non ST-segment elevation myocardial infarction in a patient with known history of coronary artery disease, could be exacerbated by the stress of the bee sting. 2. Status post coronary artery bypass grafting. 3. History of hypertension. 4. Hyperlipidemia. RECOMMENDATION: From the cardiac standpoint, I will add oral nitrate to his regimen. Continue rest of his medical regimen. Increase his level of activity. Depending on his progress, further recommendation will be made. I would not recommend aggressive cardiac workup at this time, in view of his overall status. I have discussed those findings with the patient. Depending on his progress, he may be able to be discharged home soon and followed as an outpatient. ELLEN / DES: [id number] /
[2020-06-24 12:06] LABS: Glucose,Whole Blood 172 mg/dL (75-99)
[2020-06-24] MEDS: ISOSORBIDE MONONITRATE ER 30 MG TAB.ER.24H PO SCH (12:24)
[2020-06-24 16:50] LABS: Glucose,Whole Blood 144 mg/dL (75-99)
[2020-06-24 20:18] LABS: Glucose,Whole Blood 158 mg/dL (75-99)
[2020-06-24] MEDS ORDERED: MELATONIN 5 MG TABLET PO SCH (21:00)
[2020-06-25] MEDS: methylPREDNISolone SOD SUCCI 125 MG/2 ML VIAL IV SCH ×3 (00:04→13:04)
[2020-06-25 01:06] VITALS: RESP 18
[2020-06-25 06:10] LABS: Glucose,Whole Blood 190 mg/dL (75-99)
[2020-06-25] MEDS: INSULIN ASPART (NovoLOG) 100 UNIT/ML VIAL SQ SCH ×2 (06:59→13:04)
[2020-06-25] MEDS ORDERED: FAMOTIDINE 20 MG/2 ML VIAL IV SCH (09:00)
[2020-06-25 09:09] VITALS: BP 151/70; TEMP 97.7
[2020-06-25] MEDS: ATORVASTATIN 40 MG TAB PO SCH (09:10)
[2020-06-25] MEDS: ISOSORBIDE MONONITRATE ER 30 MG TAB.ER.24H PO SCH (09:10)
[2020-06-25] MEDS: lisinopriL 10 MG TAB PO SCH (09:10)
[2020-06-25] MEDS: CHOLECALCIFEROL 1,000 UNIT TAB PO SCH (09:10)
[2020-06-25] MEDS: ASPIRIN 81 MG PO SCH (09:10)
[2020-06-25] MEDS: HEPARIN SODIUM,PORCINE 5,000 UNIT/ML 1 ML VIAL SQ SCH (09:10)
[2020-06-25 12:27] LABS: Glucose,Whole Blood 131 mg/dL (75-99)
--- NOTE | 2020-06-25 13:46 | P.PN ---
Subjective Progress Note Date: 06/25/20 this is a pleasant 89-year-old gentleman with a known history of CAD who presented to being stung by a bee. Following that he became dizzy with tingling in his arms and a headache as well as generalized weakness. He did have a fall. He thinks he may have had a very brief syncopal episode. Had some chest discomfort and subsequently came to the emergency room. He's been pain-free since admission. He's been up walking without difficulties. He is quite anxious to be discharged. Objective - Vital Signs Vital signs: Vital Signs Temp 97.7 F 06/25/20 08:00 Pulse 64 06/25/20 08:00 Resp 18 06/25/20 04:00 BP 151/70 06/25/20 08:00 Pulse Ox 96 06/25/20 08:00 Intake & Output 06/24/20 06/25/20 06/25/20 18:59 06:59 18:59 Intake Total 1020 120 Balance 1020 120 Weight 89.7 kg Intake: Oral 1020 120 Other: Voiding Method Toilet # Voids 2 3 1 - Exam PHYSICAL EXAMINATION: HEENT: [Head is atraumatic, normocephalic. Pupils equal, round. Neck is supple. There is no elevated jugular venous pressure.] HEART EXAMINATION: [Heart sounds regular, S1 and S2 with a systolic ejection murmu] CHEST EXAMINATION:[ Lungs are clear to auscultation and precussion. No chest wall tenderness is noted on palpation or with deep breathing.] ABDOMEN: [ Soft, nontender. Bowel sounds are heard. No organomegaly noted]. EXTREMITIES:[ 2+ peripheral pulses with no evidence of peripheral edema and no calf tenderness noted]. NEUROLOGIC [patient is awake, alert and oriented x3.] . - Labs CBC & Chem 7: 06/23/20 15:14 06/23/20 15:14 Labs: Abnormal Lab Results - Last 24 Hours (Table) 06/24/20 06/24/20 06/25/20 Range/Units 16:48 20:16 06:09 POC Glucose (mg/dL) 144 H 158 H 190 H (75-99) mg/dL 06/25/20 Range/Units 12:25 POC Glucose (mg/dL) 131 H (75-99) mg/dL Assessment and Plan Assessment: #1 episode of chest discomfort with possible non-ST segment elevation MA in a patient with known history of CAD, could be exacerbated by the stress of bee sting #2 status post coronary artery bypass grafting #3 history of hypertension #4 hyperlipidemia Plan: from cardiology's perspective medications were reviewed and we will continue the same. The patient will need to be discharged home with an EpiPen. He will follow-up in the office with Dr. Sky as an outpatient. HYDRODYNAMICS PROFESSOR note has been reviewed, I agree with a documented findings and plan of care. Patient was seen and examined.
[2020-06-25 15:14] VITALS: PULSE 62
--- NOTE | 2020-06-25 21:44 | P.DS ---
Providers Date of admission: 06/23/20 17:13 Attending physician: Vivienne Galvez Consults: 06/23/20 17:02 Consult Physician Urgent Consulting Provider: [facility] Consult Reason/Comments: Elevated troponin, anaphylaxis reaction Do you want consulting provider notified?: Yes Primary care physician: Shravan Callejas Hospital Course: Diagnoses: anaphylaxis secondary to bee sting elevated troponin, suspicious for non-STEMI, health policy analyst evaluated the patient cleared him for discharge Marked sinus arrhythmia and his EKG, asymptomatic Coronary artery disease, status post bypass 3 years ago Hypertension Hyperlipidemia Hospital course: This is a pleasant 89 years old male with past medical history of coronary artery disease status post bypass graft about 30 years ago, hypertension, hyperlipidemia Was recently discharged from hospital from 05/24-05/25 for dizziness And his been evaluated by health policy analyst at that time. The presents becaus he got stung with a bee behind his right ear and fell almost passed out with tongue swelling. Patient was doing his lawn, when he got stung by a bee right above his right ear, shortly after that he crashed on the floor and passed out and he had to crawl to his house ,and then he came to emergency room where he was started on steroids and Benadryl and he felt better. Patient was found to have elevated troponin suspicious for non-STEMI, health policy analyst evaluated the patient and Dr. Sky who is his health policy analyst recommended to continue with conservative treatment Patient is monitored for more than 24 hours and he remained stable with no more tongue swelling, no breathing difficulty or respiratory issue. No chest pain. No other new complaint. Actually patient was eager to be discharged from yesterday but he agrees to stay until today and this morning he still was to go home as he is back to his normal self as he states. Patient is also good for discharge by health policy analyst team Patient will be discharged on tapering steroids. Prescription for EpiPen as provided, patient was counseled to keep away from bee venom and he agrees Problems and management plan were discussed with the patient and he verbalized understanding and acceptance Patient was found stable and can be discharged home however he needs follow-up as an outpatient. Patient was instructed to follow up with PCP Dr. Callejas within one week and with his health policy analyst Dr. Sky in 1-2 weeks and patient agrees to call and make his own appointment as today is weekend and staff could not help him with the appointments Gen: patient is a AAOx3, no distress CVS: S1-S2, RRR, no murmur Lungs: B/L CTA, no wheezing Abdomen: soft, no distention, no tenderness, positive bowel sounds Extremity: no leg edema or induration Time spent more than 35 minutes Plan - Discharge Summary New Discharge Prescriptions: New diphenhydrAMINE [Benadryl] 25 mg PO BID PRN #2 capsule PRN Reason: Allergic Reaction EPINEPHrine (Auto Inject) [Epipen] 0.3 mg IM ONCE PRN #1 pen PRN Reason: Anaphylaxis Isosorbide Mononitrate ER [Imdur] 30 mg PO DAILY #30 tab.er.24h predniSONE 10 mg PO DIRECTED #18 tab Continue Aspirin EC [Ecotrin Low Dose] 81 mg PO DAILY #30 tablet. Nitroglycerin Sl Tabs [Nitrostat] 0.4 mg SUBLINGUAL Q5M PRN #25 tab PRN Reason: Chest Pain Cholecalciferol [Vitamin D3 (25 Mcg = 1000 Iu)] 1,000 unit PO DAILY Atorvastatin [Lipitor] 40 mg PO DAILY Prevagen 1 tab PO DAILY lisinopriL [Zestril] 10 mg PO DAILY Discharge Medication List Aspirin EC [Ecotrin Low Dose] 81 mg PO DAILY #30 tablet. 05/03/14 [Rx] Nitroglycerin Sl Tabs [Nitrostat] 0.4 mg SUBLINGUAL Q5M PRN #25 tab 05/03/14 [Rx] Atorvastatin [Lipitor] 40 mg PO DAILY 05/24/20 [History] Cholecalciferol [Vitamin D3 (25 Mcg = 1000 Iu)] 1,000 unit PO DAILY 05/24/20 [History] Prevagen 1 tab PO DAILY 05/24/20 [History] lisinopriL [Zestril] 10 mg PO DAILY 06/23/20 [History] EPINEPHrine (Auto Inject) [Epipen] 0.3 mg IM ONCE PRN #1 pen 06/25/20 [Rx] Isosorbide Mononitrate ER [Imdur] 30 mg PO DAILY #30 tab.er.24h 06/25/20 [Rx] diphenhydrAMINE [Benadryl] 25 mg PO BID PRN #2 capsule 06/25/20 [Rx] predniSONE 10 mg PO DIRECTED #18 tab 06/25/20 [Rx] Follow up Appointment(s)/Referral(s): Chema Sky MD [STAFF PHYSICIAN] - 1 Week Gino Callejas MD [Primary Care Provider] - 1-2 days Patient Instructions/Handouts: Insect Bite or Sting (DC), Anaphylaxis (DC) Activity/Diet/Wound Care/Special Instructions: Heart healthy diet Activity is limited till you see your doctor Discharge Disposition: HOME SELF-CARE
== END 2020-06-25 15:14 | disposition home or self-care (01) ==
LOC: EC 14:39 → 3SCARD 17:13
PROVIDERS: ADMIT Internal Medicine; ATTEND Internal Medicine
DX: T63.441A Toxic effect of venom of bees, accidental (unintentional), initial encounter (principal); T78.2XXA Anaphylactic shock, unspecified, initial encounter; R79.89 Other specified abnormal findings of blood chemistry; I49.9 Cardiac arrhythmia, unspecified; S41.112A Laceration without foreign body of left upper arm, initial encounter; S41.111A Laceration without foreign body of right upper arm, initial encounter; R20.2 Paresthesia of skin; R51 Headache; R53.1 Weakness; R07.89 Other chest pain; R01.1 Cardiac murmur, unspecified; I25.10 Atherosclerotic heart disease of native coronary artery without angina pectoris; Z95.1 Presence of aortocoronary bypass graft; I10 Essential (primary) hypertension; E78.5 Hyperlipidemia, unspecified; W19.XXXA Unspecified fall, initial encounter; Y92.007 Garden or yard of unspecified non-institutional (private) residence as the place of occurrence of the external cause; M10.9 Gout, unspecified; K59.00 Constipation, unspecified; Z96.641 Presence of right artificial hip joint; Z87.891 Personal history of nicotine dependence; Z79.82 Long term (current) use of aspirin; Z79.899 Other long term (current) drug therapy; Z91.030 Bee allergy status; Z91.048 Other nonmedicinal substance allergy status; Z82.49 Family history of ischemic heart disease and other diseases of the circulatory system
CPT/HCPCS: 96376 ×3; 93005 ×2; 96372 ×2; 96375 ×2; 96374; 99291; 36415; 80061; 80053; 84484; 85025; G0378 ×3; J1200; J1644 ×2; J2930 ×3

== ENCOUNTER 2021-09-10 08:32 | Inpatient (IN) | payer MEDICARE ==
[2021-09-10 08:42] LABS: Glucose,Whole Blood 125 mg/dL (75-99)
[2021-09-10 09:06] LABS: Albumin 3.2 g/dL (3.5-5.0); Magnesium 1.8 mg/dL (1.6-2.3); Potassium 4.1 mmol/L (3.5-5.1); Total Bilirubin 0.6 mg/dL (0.2-1.3); Total Protein 5.6 g/dL (6.3-8.2)
--- NOTE | 2021-09-10 09:11 | ED ---
General Adult HPI - General Chief complaint: Chest Pain Stated complaint: chest tightness Time Seen by Provider: 09/10/21 08:41 Source: patient, RN notes reviewed, old records reviewed Mode of arrival: ambulatory Limitations: no limitations - History of Present Illness Initial comments: 89-year-old male with history of CAD presenting for evaluation. Patient states that his daughter had convinced him to come to the hospital. Apparently over the past one week he has complained of chest pain. He denies any pain at the time my evaluation. He denies cough or fever. Denies dyspnea. Denies abdominal pain nausea or vomiting. He states he had open-heart surgery at the age of 57. - Related Data Home Medications Medication Instructions Recorded Confirmed Cholecalciferol [Vitamin D3 (25 1,000 unit PO DAILY 05/24/20 09/10/21 Mcg = 1000 Iu)] lisinopriL [Zestril] 10 mg PO BID 06/23/20 09/10/21 Previous Rx's Medication Instructions Recorded Aspirin EC [Ecotrin Low Dose] 81 mg PO DAILY #30 tablet. 05/03/14 EPINEPHrine (Auto Inject) [Epipen] 0.3 mg IM ONCE PRN #1 pen 06/25/20 Allergies Allergy/AdvReac Type Severity Reaction Status Date / Time bee venom protein (honey bee) Allergy Anaphylaxis Verified 09/10/21 09:59 adhesive AdvReac tears off Verified 09/10/21 09:59 skin Review of Systems ROS Statement: Those systems with pertinent positive or pertinent negative responses have been documented in the HPI. ROS Other: All systems not noted in ROS Statement are negative. Past Medical History Past Medical History: Coronary Artery Disease (CAD), Hyperlipidemia, Hypertension Additional Past Medical History / Comment(s): Bun and Creat issues,MURMUR, GOUT, UMBILICAL HERNIA, CONSTIPATION, History of Any Multi-Drug Resistant Organisms: None Reported Past Surgical History: Coronary Bypass/CABG, Heart Catheterization, Joint Replacement, Tonsillectomy Additional Past Surgical History / Comment(s): , RT HIP REPLACEMENT, TRIPLE BYPASS SX, CATARACTS, HEMRROIDECTOMY, SCHRAPNEL REMOVED 1952,RT KNEE SX HAD A SEPEARTED MUSCLE FROM HIP TO KNEE. Past Anesthesia/Blood Transfusion Reactions: No Reported Reaction Past Psychological History: No Psychological Hx Reported Smoking Status: Former smoker Past Alcohol Use History: Daily Past Drug Use History: None Reported - Past Family History Mother Family Medical History: Coronary Artery Disease (CAD) Father Family Medical History: No Reported History General Exam Limitations: no limitations General appearance: alert, in no apparent distress Head exam: Present: atraumatic, normocephalic Eye exam: Present: normal appearance, PERRL ENT exam: Present: normal exam Neck exam: Present: normal inspection. Absent: tenderness, meningismus Respiratory exam: Present: normal lung sounds bilaterally. Absent: respiratory distress, wheezes Cardiovascular Exam: Present: regular rate, normal rhythm GI/Abdominal exam: Present: soft. Absent: distended, tenderness, guarding Extremities exam: Present: normal inspection, normal capillary refill. Absent: pedal edema Neurological exam: Present: alert, oriented X3, CN II-XII intact. Absent: motor sensory deficit Psychiatric exam: Present: normal affect, normal mood Skin exam: Present: warm, dry, intact. Absent: cyanosis, diaphoretic Course Vital Signs 09/10/21 08:35 Temperature 98.0 F Pulse Rate 74 Respiratory 18 Rate Blood Pressure 133/68 O2 Sat by Pulse 100 Oximetry EKG Findings - EKG Comments: EKG Findings:: EKG: Normal sinus rhythm no ST segment elevation, there is ST segment depression in V3 and V4. T waves are upright in the precordial leads, aVL is T-wave inversion there is a ventricular rate is 74, CO interval 158, QRS duration 102, QTC 495. Medical Decision Making - Medical Decision Making 89-year-old male who had presented with an episode of chest pain. Workup is initiated, EKG sinus rhythm with ST segment depression in the precordial leads, no ST segment elevation. Patient is noted to have a hemoglobin of 6. I did question the patient on gastrointestinal leading or dark stool he states that he's had dark stool for approximately one month. His Hemoccult is positive. He is transfused 2 units of blood. He started on proton pump inhibitor. Addition ally he has some acute kidney injury and elevated troponin. I discussed this with Dr. Sky, we will trend cardiac enzymes. He has no active chest pain at this time. I discussed case with Dr. Sanderson who will see this patient in consultation, recommends EGD for tomorrow. - Lab Data Result diagrams: 09/10/21 08:48 09/10/21 08:48 Lab Results 09/10/21 09/10/21 09/10/21 Range/Units 08:41 08:48 08:48 WBC 6.4 (3.8-10.6) k/uL RBC 1.93 L (4.30-5.90) m/uL Hgb 6.3 L* (13.0-17.5) gm/dL Hct 19.3 L* (39.0-53.0) % MCV 100.2 H (80.0-100.0) fL MCH 32.8 (25.0-35.0) pg MCHC 32.7 (31.0-37.0) g/dL RDW 15.4 (11.5-15.5) % Plt Count 106 L (150-450) k/uL MPV 12.1 Neutrophils % 70 % Lymphocytes % 24 % Monocytes % 3 % Eosinophils % 1 % Basophils % 0 % Neutrophils # 4.5 (1.3-7.7) k/uL Lymphocytes # 1.5 (1.0-4.8) k/uL Monocytes # 0.2 (0-1.0) k/uL Eosinophils # 0.0 (0-0.7) k/uL Basophils # 0.0 (0-0.2) k/uL Manual Slide Review Performed Macrocytosis Slight PT 10.3 (9.0-12.0) sec INR 1.0 (<1.2) APTT 20.2 L (22.0-30.0) sec Sodium (137-145) mmol/L Potassium (3.5-5.1) mmol/L Chloride (98-107) mmol/L Carbon Dioxide (22-30) mmol/L Anion Gap mmol/L BUN (9-20) mg/dL Creatinine (0.66-1.25) mg/dL Est GFR (CKD-EPI)AfAm (>60 ml/min/1.73 sqM) Est GFR (CKD-EPI)NonAf (>60 ml/min/1.73 sqM) Glucose (74-99) mg/dL POC Glucose (mg/dL) 125 H (75-99) mg/dL POC Glu Wet Milling Wheel Operator ID Rhys Boyd Calcium (8.4-10.2) mg/dL Magnesium (1.6-2.3) mg/dL Total Bilirubin (0.2-1.3) mg/dL AST (17-59) U/L ALT (4-49) U/L Alkaline Phosphatase (38-126) U/L Troponin I (0.000-0.034) ng/mL Total Protein (6.3-8.2) g/dL Albumin (3.5-5.0) g/dL Stool Occult Blood (Negative) Blood Type Recheck Bld Type Recheck Status Spec Expiration Date 09/10/21 09/10/21 09/10/21 Range/Units 08:48 08:48 09:36 WBC (3.8-10.6) k/uL RBC (4.30-5.90) m/uL Hgb (13.0-17.5) gm/dL Hct (39.0-53.0) % MCV (80.0-100.0) fL MCH (25.0-35.0) pg MCHC (31.0-37.0) g/dL RDW (11.5-15.5) % Plt Count (150-450) k/uL MPV Neutrophils % % Lymphocytes % % Monocytes % % Eosinophils % % Basophils % % Neutrophils # (1.3-7.7) k/uL Lymphocytes # (1.0-4.8) k/uL Monocytes # (0-1.0) k/uL Eosinophils # (0-0.7) k/uL Basophils # (0-0.2) k/uL Manual Slide Review Macrocytosis PT (9.0-12.0) sec INR (<1.2) APTT (22.0-30.0) sec Sodium 139 (137-145) mmol/L Potassium 4.1 (3.5-5.1) mmol/L Chloride 111 H (98-107) mmol/L Carbon Dioxide 18 L (22-30) mmol/L Anion Gap 10 mmol/L BUN 40 H (9-20) mg/dL Creatinine 1.52 H (0.66-1.25) mg/dL Est GFR (CKD-EPI)AfAm 47 (>60 ml/min/1.73 sqM) Est GFR (CKD-EPI)NonAf 40 (>60 ml/min/1.73 sqM) Glucose 111 H (74-99) mg/dL POC Glucose (mg/dL) (75-99) mg/dL POC Glu Wet Milling Wheel Operator ID Calcium 9.0 (8.4-10.2) mg/dL Magnesium 1.8 (1.6-2.3) mg/dL Total Bilirubin 0.6 (0.2-1.3) mg/dL AST 54 (17-59) U/L ALT 19 (4-49) U/L Alkaline Phosphatase 72 (38-126) U/L Troponin I 3.190 H* (0.000-0.034) ng/mL Total Protein 5.6 L (6.3-8.2) g/dL Albumin 3.2 L (3.5-5.0) g/dL Stool Occult Blood Positive (Negative) Blood Type Recheck Bld Type Recheck Status Spec Expiration Date 09/10/21 Range/Units 09:36 WBC (3.8-10.6) k/uL RBC (4.30-5.90) m/uL Hgb (13.0-17.5) gm/dL Hct (39.0-53.0) % MCV (80.0-100.0) fL MCH (25.0-35.0) pg MCHC (31.0-37.0) g/dL RDW (11.5-15.5) % Plt Count (150-450) k/uL MPV Neutrophils % % Lymphocytes % % Monocytes % % Eosinophils % % Basophils % % Neutrophils # (1.3-7.7) k/uL Lymphocytes # (1.0-4.8) k/uL Monocytes # (0-1.0) k/uL Eosinophils # (0-0.7) k/uL Basophils # (0-0.2) k/uL Manual Slide Review Macrocytosis PT (9.0-12.0) sec INR (<1.2) APTT (22.0-30.0) sec Sodium (137-145) mmol/L Potassium (3.5-5.1) mmol/L Chloride (98-107) mmol/L Carbon Dioxide (22-30) mmol/L Anion Gap mmol/L BUN (9-20) mg/dL Creatinine (0.66-1.25) mg/dL Est GFR (CKD-EPI)AfAm (>60 ml/min/1.73 sqM) Est GFR (CKD-EPI)NonAf (>60 ml/min/1.73 sqM) Glucose (74-99) mg/dL POC Glucose (mg/dL) (75-99) mg/dL POC Glu Wet Milling Wheel Operator ID Calcium (8.4-10.2) mg/dL Magnesium (1.6-2.3) mg/dL Total Bilirubin (0.2-1.3) mg/dL AST (17-59) U/L ALT (4-49) U/L Alkaline Phosphatase (38-126) U/L Troponin I (0.000-0.034) ng/mL Total Protein (6.3-8.2) g/dL Albumin (3.5-5.0) g/dL Stool Occult Blood (Negative) Blood Type Recheck No Previous Record Bld Type Recheck Status CABO Indicated Spec Expiration Date 09/13/2021 - 2335 Critical Care Time Critical Care Time: Yes Total Critical Care Time: 35 Disposition Clinical Impression: Elevated troponin, Chest pain, Anemia, GI bleed Disposition: ADMITTED IP TO THIS [facility] Condition: Stable Is patient prescribed a controlled substance at d/c from ED?: No Referrals: Hari Varma MD [REFERRING] - 1-2 days Decision to Admit Reason: Admit from EC Decision Date: 09/10/21 Decision Time: 10:24
--- NOTE | 2021-09-10 09:12 | XR ---
EXAMINATION TYPE: XR chest 2V DATE OF EXAM: 09/10/2021 COMPARISON: Chest x-ray 05/24/2020 HISTORY: Chest pain TECHNIQUE: Frontal and lateral views of the chest are obtained. FINDINGS: Patient is post median sternotomy. There are coronary artery calcifications. Interstitium i s increased. There is no focal air space opacity, pleural effusion, or pneumothorax seen. The cardia c silhouette size is within normal limits. The osseous structures are intact. Lung volumes are prom inent. IMPRESSION: Correlate for possible pulmonary venous hypertension and interstitial edema in a patient with underlying COPD.
[2021-09-10 09:14] LABS: Prothrombin Time 10.3 sec (9.0-12.0)
[2021-09-10 09:19] LABS: Basophils % (A) 0 %; Eosinophils % (A) 1 %; Lymphocytes # (A) 1.5 k/uL (1.0-4.8); Lymphocytes % (A) 24 %; MCH 32.8 pg (25.0-35.0); MCHC 32.7 g/dL (31.0-37.0); MCV 100.2 fL (80.0-100.0); Macrocytosis Slight; Mean Platelet Volume 12.1; Monocytes # (A) 0.2 k/uL (0-1.0); Monocytes % (A) 3 %; Neutrophils # (A) 4.5 k/uL (1.3-7.7); Neutrophils % (A) 70 %; Platelet Count 106 k/uL (150-450); RBC 1.93 m/uL (4.30-5.90); RDW 15.4 % (11.5-15.5); WBC 6.4 k/uL (3.8-10.6)
[2021-09-10 09:21] LABS: HGB 6.3 gm/dL (13.0-17.5)
[2021-09-10 09:22] LABS: HCT 19.3 % (39.0-53.0)
[2021-09-10 09:27] LABS: Partial Thromboplastin Time 20.2 sec (22.0-30.0)
[2021-09-10] MEDS ORDERED: PANTOPRAZOLE 40 MG/10 ML VIAL IVP STA (09:31)
[2021-09-10] MEDS ORDERED: ACETAMINOPHEN TAB 325 MG TAB PO PRN (10:20)
[2021-09-10] MEDS ORDERED: NALOXONE 0.4 MG/ML 1 ML VIAL IV PRN (10:20)
[2021-09-10] MEDS ORDERED: ONDANSETRON 4 MG/2 ML VIAL IVP PRN (10:20)
[2021-09-10] MEDS: SODIUM CHLORIDE 0.9% 1,000 ML IV SCH ×2 (12:19→20:33)
--- NOTE | 2021-09-10 13:02 | CONS ---
CONSULTATION HISTORY: Mr. Xie is an 89-year-old male with known history of coronary artery disease status post coronary artery bypass grafting, who presented to the hospital with over a week of progressive symptoms of fatigue and chest discomfort as well as dyspnea. He felt weak and fell to the ground. He did not have any syncope. He has recent peripheral edema and progressive memory loss according to the daughter. About a week or so ago he noted darker stool. He did not seek any medical care. He underwent coronary bypass grafting in 1988. Repeat cardiac catheterization in 2014 revealed an 80% distal left main, chronic occluded left circumflex and PDA with patent MOHAMUD to LAD, patent saphenous vein graft to the PDA disease, obtuse marginal branch. His left ventricular systolic function was preserved in the past. The patient in the past has been quite active physically until recently when he was feeling more tired. He uses ibuprofen occasionally. He is not on anticoagulation. He drinks at least 2 alcoholic drinks a day. His coronary risk factors are remarkable for hyperlipidemia. He is nonsmoker, nondiabetic. He is hypertensive. MEDICATION: Medications at home included aspirin 81 mg daily, lisinopril 10 mg twice a day and he used to be on a statin. REVIEW OF SYSTEMS: Respiratory system he has the recent dyspnea on exertion. No recent wheezing or cough. GI system no nausea, no vomiting. He has noted change in the color of his stools recently. system no dysuria or hematuria. Nervous system no history of seizure. PHYSICAL EXAMINATION: He is an 89-year-old male, alert, oriented, no apparent distress. Blood pressure 133/68 with a heart rate in 70s. HEAD: Normocephalic. Eyes sclerae anicteric. Conjunctivae pale. NECK: Good upstroke. No bruit LUNGS: Clear to auscultation. HEART: Regular rhythm S1, S2. No S3 with systolic ejection murmur heard at the base ejection type, 2/6 no diastolic murmur no rub. ABDOMEN: Soft, nontender. Positive bowel sounds. No organomegaly. EXTREMITIES: +1 to 2 edema bilaterally. LAB DATA: Lab data revealed a hemoglobin of 6.3, BUN and creatinine of 40 and 1.52, potassium 4.1, his troponin 3.19. He is heme positive. His EKG revealed a sinus mechanism, rate of 74, normal axis, intervals with nonspecific ST-T wave changes, mild ST depression in the anterior precordial leads. His chest x-ray shows mild congestion. IMPRESSION: 1. Non ST-segment elevation myocardial infarction probably supply demand related to the severe anemia. 2. GI bleeding, unclear source. 3. Status post coronary artery bypass grafting. 4. Prior history of hyperlipidemia. 5. Prior history of hypertension. RECOMMENDATIONS: From the cardiac standpoint, I will hold his aspirin. I will start on low-dose beta kamala as well as a diuretics. Will obtain echocardiogram with Doppler. He will be transfused. I have discussed those finding with the patient and his daughter. The patient expressed that he wants to be NO CODE and he has the documentation for that. I would he is not a candidate for any aggressive cardiac workup. According to his wish and overall status, depending on his progress, further recommendations will be made. Thank you for this consult. We will follow with you. ELLEN / DES: [id number] /
--- NOTE | 2021-09-10 13:27 | P.GSCN ---
History of Present Illness Consult date: 09/10/21 History of present illness: CHIEF COMPLAINT: Anemia HISTORY OF PRESENT ILLNESS: The patient is a 89 year old male who presents to the emergency room due to large bloody bowel movements in the past 1-2 days. His daughter is at bedside. He reports mild crampy lower abdominal pain. Last colonoscopy over 5 years ago. He doesn't a family history of diverticulosis. Currently, he is receiving 1 unit of blood. No reports of blood thinners. He has pre-existing cardiac disease including coronary artery disease and history of CABG. General surgery is consulted for gastrointestinal bleeding with acute anemia, hemoglobin 6.3. PAST MEDICAL HISTORY: See list and reviewed PAST SURGICAL HISTORY: See list and reviewed MEDICATIONS: See list and reviewed ALLERGIES: See list and reviewed SOCIAL HISTORY: See list and reviewed FAMILY HISTORY: See list and reviewed REVIEW OF ORGAN SYSTEMS: CONSTITUTIONAL: No fevers or chills. EYES: Denies any trouble with vision. No glasses. HEENT: No difficulties with hearing. No nosebleeds. No difficulty swallowing. RESPIRATORY: Denies shortness of breath. No recent pneumonia. CARDIOVASCULAR: Has coronary artery disease including CABG. Has hyperlipidemia including hypertension. GASTROINTESTINAL: Has change in bowel habits including constipation. Last colonoscopy over 5 years ago. GENITOURINARY: Denies any blood in urine or increased urinary frequency. NEUROLOGICAL: Denies any numbness or tingling along the distal extremities. No seizure disorders or headaches. MUSCULOSKELETAL: Has back pain, stiffness or joint arthritis. SKIN: No current skin cancer. No rash. PSYCHIATRIC: Denies current depression or suicidal thoughts. ENDOCRINE: Denies current thyroid disorders. Denies hyperglycemia. HEME/LYMPHATIC: Recent anemia with blood transfusions ALLERGY/IMMUNOLOGY: No immunoglobulin therapy. No immune deficiencies. BREAST: Denies current breast lumps, pain or nipple discharge. PHYSICAL EXAM: VITALS: Reviewed CONSTITUTIONAL: Well developed and in no acute distress. EYES: Conjuctivae without sclera icterus. Extraocular movements grossly intact. HEAD, EARS, NOSE, THROAT: Moist buccal mucosa. Head is atraumatic, normocephalic. Hears conversational speech. No nasal drainage. NECK: Supple. No JV distention. No gross thyroidomegaly. RESPIRATORY: Non-labored respirations and equal bilateral excursions. No gross wheezes. CARDIOVASCULAR: Regular rate. Regular rhythm. ABDOMEN: No peritonitis. LYMPH: No grossneck lymphadenopathy. MUSCULOSKELETAL: Nail and fingers with good capillary refill. SKIN: Warm and well perfused with good skin turgor. NEUROLOGIC: Cranial nerves II through XII grossly intact. No focal or lateralizing signs. PSYCH: Alert and oriented to person, place and time. CLINCAL LABS: Reviewed. WBC 6.4. Hemoglobin 6.3. Creatinine 1.52. RADIOLOGY: Report reviewed a chest x-ray demonstrates interstitial edema with chronic obstructive pulmonary disease EKG: Revealed with septal infarct age undetermined. ASSESSMENT: 1. Gastrointestinal bleeding 2. Family history of diverticulosis 3. Acute blood loss anemia PLAN: 1. Upper and lower endoscopy advised. 2. Agree with blood transfusion for hemoglobin 6.3 and pre-existing cardiac hi story. 3. He has is increased risk of perforation with diverticulosis. 4. Recommend serial hemoglobin Thank you for this kind consultation. Past Medical History Past Medical History: Coronary Artery Disease (CAD), Hyperlipidemia, Hypertension Additional Past Medical History / Comment(s): Bun and Creat issues,MURMUR, GOUT, UMBILICAL HERNIA, CONSTIPATION, History of Any Multi-Drug Resistant Organisms: None Reported Past Surgical History: Coronary Bypass/CABG, Heart Catheterization, Joint Replacement, Tonsillectomy Additional Past Surgical History / Comment(s): , RT HIP REPLACEMENT, TRIPLE BYPASS SX, CATARACTS, HEMRROIDECTOMY, SCHRAPNEL REMOVED 1952,RT KNEE SX HAD A SEPEARTED MUSCLE FROM HIP TO KNEE. Past Anesthesia/Blood Transfusion Reactions: No Reported Reaction Past Psychological History: No Psychological Hx Reported Smoking Status: Former smoker Past Alcohol Use History: Daily Past Drug Use History: None Reported - Past Family History Mother Family Medical History: Coronary Artery Disease (CAD) Father Family Medical History: No Reported History Medications and Allergies Home Medications Medication Instructions Recorded Confirmed Type Aspirin EC [Ecotrin Low Dose] 81 mg PO DAILY #30 tablet. 05/03/14 09/10/21 Rx Cholecalciferol [Vitamin D3 (25 1,000 unit PO DAILY 05/24/20 09/10/21 History Mcg = 1000 Iu)] lisinopriL [Zestril] 10 mg PO BID 06/23/20 09/10/21 History EPINEPHrine (Auto Inject) [Epipen] 0.3 mg IM ONCE PRN #1 pen 06/25/20 09/10/21 Rx Allergies Allergy/AdvReac Type Severity Reaction Status Date / Time bee venom protein (honey bee) Allergy Anaphylaxis Verified 09/10/21 09:59 adhesive AdvReac tears off Verified 09/10/21 09:59 skin Surgical - Exam Vital Signs Temp Pulse Resp BP Pulse Ox 98.0 F 74 18 133/68 100 09/10/21 08:35 09/10/21 08:35 09/10/21 08:35 09/10/21 08:35 09/10/21 08:35 Results - Labs 09/10/21 08:48 09/10/21 08:48 Abnormal Lab Results - Last 24 Hours (Table) 09/10/21 09/10/21 09/10/21 Range/Units 08:41 08:48 08:48 RBC 1.93 L (4.30-5.90) m/uL Hgb 6.3 L* (13.0-17.5) gm/dL Hct 19.3 L* (39.0-53.0) % MCV 100.2 H (80.0-100.0) fL Plt Count 106 L (150-450) k/uL APTT 20.2 L (22.0-30.0) sec Chloride (98-107) mmol/L Carbon Dioxide (22-30) mmol/L BUN (9-20) mg/dL Creatinine (0.66-1.25) mg/dL Glucose (74-99) mg/dL POC Glucose (mg/dL) 125 H (75-99) mg/dL Troponin I (0.000-0.034) ng/mL Total Protein (6.3-8.2) g/dL Albumin (3.5-5.0) g/dL Crossmatch 09/10/21 09/10/21 09/10/21 Range/Units 08:48 08:48 09:36 RBC (4.30-5.90) m/uL Hgb (13.0-17.5) gm/dL Hct (39.0-53.0) % MCV (80.0-100.0) fL Plt Count (150-450) k/uL APTT (22.0-30.0) sec Chloride 111 H (98-107) mmol/L Carbon Dioxide 18 L (22-30) mmol/L BUN 40 H (9-20) mg/dL Creatinine 1.52 H (0.66-1.25) mg/dL Glucose 111 H (74-99) mg/dL POC Glucose (mg/dL) (75-99) mg/dL Troponin I 3.190 H* (0.000-0.034) ng/mL Total Protein 5.6 L (6.3-8.2) g/dL Albumin 3.2 L (3.5-5.0) g/dL Crossmatch See Detail Diabetes panel 09/10/21 Range/Units 08:48 Sodium 139 (137-145) mmol/L Potassium 4.1 (3.5-5.1) mmol/L Chloride 111 H (98-107) mmol/L Carbon Dioxide 18 L (22-30) mmol/L BUN 40 H (9-20) mg/dL Creatinine 1.52 H (0.66-1.25) mg/dL Glucose 111 H (74-99) mg/dL Calcium 9.0 (8.4-10.2) mg/dL AST 54 (17-59) U/L ALT 19 (4-49) U/L Alkaline Phosphatase 72 (38-126) U/L Total Protein 5.6 L (6.3-8.2) g/dL Albumin 3.2 L (3.5-5.0) g/dL Calcium panel 09/10/21 Range/Units 08:48 Calcium 9.0 (8.4-10.2) mg/dL Albumin 3.2 L (3.5-5.0) g/dL Pituitary panel 09/10/21 Range/Units 08:48 Sodium 139 (137-145) mmol/L Potassium 4.1 (3.5-5.1) mmol/L Chloride 111 H (98-107) mmol/L Carbon Dioxide 18 L (22-30) mmol/L BUN 40 H (9-20) mg/dL Creatinine 1.52 H (0.66-1.25) mg/dL Glucose 111 H (74-99) mg/dL Calcium 9.0 (8.4-10.2) mg/dL Adrenal panel 09/10/21 Range/Units 08:48 Sodium 139 (137-145) mmol/L Potassium 4.1 (3.5-5.1) mmol/L Chloride 111 H (98-107) mmol/L Carbon Dioxide 18 L (22-30) mmol/L BUN 40 H (9-20) mg/dL Creatinine 1.52 H (0.66-1.25) mg/dL Glucose 111 H (74-99) mg/dL Calcium 9.0 (8.4-10.2) mg/dL Total Bilirubin 0.6 (0.2-1.3) mg/dL AST 54 (17-59) U/L ALT 19 (4-49) U/L Alkaline Phosphatase 72 (38-126) U/L Total Protein 5.6 L (6.3-8.2) g/dL Albumin 3.2 L (3.5-5.0) g/dL
[2021-09-10] MEDS: PANTOPRAZOLE 40 MG/10 ML VIAL IVP SCH (13:59)
[2021-09-10] MEDS: FUROSEMIDE 10 MG/ML 2 ML VIAL IV SCH ×2 (14:00→20:32)
[2021-09-10] MEDS: METOPROLOL TARTRATE 25 MG TAB PO SCH ×3 (14:01→20:32)
--- NOTE | 2021-09-10 15:09 | P.HPIM ---
History of Present Illness H&P Date: 09/10/21 This is a 89-year-old male with past medical history noted below significant for coronary artery disease with history of CABG 30 years ago that presented to the emergency room with chest pain and fatigue. Patient was seen by me in the emergency room. His daughter at bedside helping with history. Patient said that he's been feeling progressively weak for the past week. A couple of times he noticed bright red blood with his stool and on other occasion his stool was dark black. He denies any abdominal pain. His daughter was trying to convince him to come to the hospital earlier that patient was thinking that he may come to the hospital on Saturday but then today he started having chest pain mostly in the middle of his chest and eventually came to the ER. Patient was found to have a hemoglobin of 6.7. He was hemodynamically stable. Twelve-lead EKG showed no acute ischemic changes but troponin peaked at 5.2. Patient was seen and evaluated by cardiology and general surgery and will be admitted to the hospital for further management of his medical problems noted below Review of Systems Review of system: 14 points review of systems were obtained and were negative except to what were mentioned in the HPI. Past Medical History Past Medical History: Coronary Artery Disease (CAD), Hyperlipidemia, Hypertension Additional Past Medical History / Comment(s): Bun and Creat issues,MURMUR, GOUT, UMBILICAL HERNIA, CONSTIPATION, History of Any Multi-Drug Resistant Organisms: None Reported Past Surgical History: Coronary Bypass/CABG, Heart Catheterization, Joint Replacement, Tonsillectomy Additional Past Surgical History / Comment(s): , RT HIP REPLACEMENT, TRIPLE BYPASS SX, CATARACTS, HEMRROIDECTOMY, SCHRAPNEL REMOVED 1952,RT KNEE SX HAD A SEPEARTED MUSCLE FROM HIP TO KNEE. Past Anesthesia/Blood Transfusion Reactions: No Reported Reaction Past Psychological History: No Psychological Hx Reported Smoking Status: Former smoker Past Alcohol Use History: Daily Past Drug Use History: None Reported - Past Family History Mother Family Medical History: Coronary Artery Disease (CAD) Father Family Medical History: No Reported History Medications and Allergies Home Medications Medication Instructions Recorded Confirmed Type Aspirin EC [Ecotrin Low Dose] 81 mg PO DAILY #30 tablet. 05/03/14 09/10/21 Rx Cholecalciferol [Vitamin D3 (25 1,000 unit PO DAILY 05/24/20 09/10/21 History Mcg = 1000 Iu)] lisinopriL [Zestril] 10 mg PO BID 06/23/20 09/10/21 History EPINEPHrine (Auto Inject) [Epipen] 0.3 mg IM ONCE PRN #1 pen 06/25/20 09/10/21 Rx Allergies Allergy/AdvReac Type Severity Reaction Status Date / Time bee venom protein (honey bee) Allergy Anaphylaxis Verified 09/10/21 09:59 adhesive AdvReac tears off Verified 09/10/21 09:59 skin Physical Exam Vitals: Vital Signs Temp Pulse Resp BP Pulse Ox 09/10/21 14:30 97.6 F 69 20 140/65 09/10/21 14:17 67 20 129/60 100 09/10/21 14:05 62 20 126/68 97 09/10/21 12:05 97.8 F 61 18 125/47 98 09/10/21 11:35 97.8 F 67 17 148/76 98 09/10/21 11:24 97.3 F L 68 18 109/69 98 09/10/21 08:35 98.0 F 74 18 133/68 100 Intake and Output 09/10/21 09/10/21 09/10/21 06:59 14:59 22:59 Intake Total 310 Balance 310 Intake: Blood Product 310 Rc As-1 Unit 310 [id number] Rc Cpda-1 Unit 0 [id number] Other: Weight 84.822 kg General: The patient is awake and alert, in no distress Eye: there is normal conjunctiva bilaterally. Neck: The neck is supple, there is no JVD. Cardiovascular: Normal S1-S2, no S3-S4, no murmurs. Respiratory: Lungs clear to auscultation bilaterally Gastrointestinal: Abdomen is soft, nontender Musculoskeletal: There is no pedal edema. Neurological:. Speech is normal. Skin: Skin is warm and dry Results CBC & Chem 7: 09/10/21 08:48 09/10/21 08:48 Labs: Abnormal Lab Results - Last 24 Hours (Table) 09/10/21 09/10/21 09/10/21 Range/Units 08:41 08:48 08:48 RBC 1.93 L (4.30-5.90) m/uL Hgb 6.3 L* (13.0-17.5) gm/dL Hct 19.3 L* (39.0-53.0) % MCV 100.2 H (80.0-100.0) fL Plt Count 106 L (150-450) k/uL APTT 20.2 L (22.0-30.0) sec Chloride (98-107) mmol/L Carbon Dioxide (22-30) mmol/L BUN (9-20) mg/dL Creatinine (0.66-1.25) mg/dL Glucose (74-99) mg/dL POC Glucose (mg/dL) 125 H (75-99) mg/dL Troponin I (0.000-0.034) ng/mL Total Protein (6.3-8.2) g/dL Albumin (3.5-5.0) g/dL Crossmatch 09/10/21 09/10/21 09/10/21 Range/Units 08:48 08:48 09:36 RBC (4.30-5.90) m/uL Hgb (13.0-17.5) gm/dL Hct (39.0-53.0) % MCV (80.0-100.0) fL Plt Count (150-450) k/uL APTT (22.0-30.0) sec Chloride 111 H (98-107) mmol/L Carbon Dioxide 18 L (22-30) mmol/L BUN 40 H (9-20) mg/dL Creatinine 1.52 H (0.66-1.25) mg/dL Glucose 111 H (74-99) mg/dL POC Glucose (mg/dL) (75-99) mg/dL Troponin I 3.190 H* (0.000-0.034) ng/mL Total Protein 5.6 L (6.3-8.2) g/dL Albumin 3.2 L (3.5-5.0) g/dL Crossmatch See Detail 09/10/21 Range/Units 13:03 RBC (4.30-5.90) m/uL Hgb (13.0-17.5) gm/dL Hct (39.0-53.0) % MCV (80.0-100.0) fL Plt Count (150-450) k/uL APTT (22.0-30.0) sec Chloride (98-107) mmol/L Carbon Dioxide (22-30) mmol/L BUN (9-20) mg/dL Creatinine (0.66-1.25) mg/dL Glucose (74-99) mg/dL POC Glucose (mg/dL) (75-99) mg/dL Troponin I 5.250 H* (0.000-0.034) ng/mL Total Protein (6.3-8.2) g/dL Albumin (3.5-5.0) g/dL Crossmatch Assessment and Plan Assessment: 1. Acute blood loss anemia 2. Suspected upper GI bleed 3. Non-ST elevation [place] probably attributed to above 4. Acute kidney injury 5. Coronary artery disease with history of CABG 30 years ago 6. Hypertension, hyperlipidemia 7. CODE STATUS, patient is full code. Discussed with him and his daughter at bedside Today, I reviewed his medication list and lab work results 2 units of PRBC ordered for transfusion Continue IV fluid hydration with normal saline at 75 mL per hour Clear liquids for now and nothing by mouth after midnight for possible endoscopy in the morning IV Protonix 40 mg twice daily Medical management with Lipitor and metoprolol. Avoid anticoagulation and aspirin sitting of GI bleed Repeat lab work in the morning
[2021-09-10 17:08] LABS: Anisocytosis Slight; Basophils % (A) 0 %; Eosinophils # (A) 0.1 k/uL (0-0.7); Eosinophils % (A) 1 %; HCT 26.4 % (39.0-53.0); Lymphocytes # (A) 1.5 k/uL (1.0-4.8); Lymphocytes % (A) 23 %; MCH 31.5 pg (25.0-35.0); MCV 95.4 fL (80.0-100.0); Mean Platelet Volume 11.6; Monocytes # (A) 0.3 k/uL (0-1.0); Monocytes % (A) 5 %; Neutrophils # (A) 4.6 k/uL (1.3-7.7); Neutrophils % (A) 69 %; Platelet Count 106 k/uL (150-450); RBC 2.76 m/uL (4.30-5.90); RDW 16.5 % (11.5-15.5); WBC 6.6 k/uL (3.8-10.6)
[2021-09-10 17:09] LABS: HGB 8.7 gm/dL (13.0-17.5)
[2021-09-10] MEDS: ATORVASTATIN 40 MG TAB PO SCH (17:38)
[2021-09-11 09:09] LABS: Anisocytosis Slight; Basophils % (A) 0 %; Eosinophils # (A) 0.1 k/uL (0-0.7); Eosinophils % (A) 2 %; HCT 24.4 % (39.0-53.0); HGB 8.3 gm/dL (13.0-17.5); Lymphocytes # (A) 1.4 k/uL (1.0-4.8); Lymphocytes % (A) 23 %; MCH 32.6 pg (25.0-35.0); MCHC 33.9 g/dL (31.0-37.0); MCV 96.1 fL (80.0-100.0); Macrocytosis Slight; Mean Platelet Volume 11.8; Monocytes # (A) 0.3 k/uL (0-1.0); Monocytes % (A) 6 %; Neutrophils # (A) 4.1 k/uL (1.3-7.7); Neutrophils % (A) 67 %; Platelet Count 107 k/uL (150-450); RBC 2.54 m/uL (4.30-5.90); WBC 6.2 k/uL (3.8-10.6)
[2021-09-11 09:21] LABS: Calcium 8.5 mg/dL (8.4-10.2)
[2021-09-11] MEDS: FUROSEMIDE 10 MG/ML 2 ML VIAL IV SCH (09:59)
[2021-09-11] MEDS: ATORVASTATIN 40 MG TAB PO SCH (09:59)
[2021-09-11] MEDS: PANTOPRAZOLE 40 MG/10 ML VIAL IVP SCH ×2 (09:59→20:18)
[2021-09-11] MEDS: METOPROLOL TARTRATE 25 MG TAB PO SCH ×2 (09:59→20:18)
--- NOTE | 2021-09-11 10:53 | ECHOF ---
Referral Reason:mi MEASUREMENTS -------- HEIGHT: 180.3 cm WEIGHT: 80.3 kg BP: RVIDd: 3.1 cm (< 3.3) IVSd: 1.0 cm (0.6 - 1.1) LVIDd: 5.0 cm (3.9 - 5.3) LVPWd: 1.3 cm (0.6 - 1.1) IVSs: 2.0 cm LVIDs: 2.2 cm LVPWs: 1.8 cm LAESV Index (A-L): 46.63 ml/m Ao Diam: 3.1 cm (2.0 - 3.7) AV Cusp: 1.0 cm (1.5 - 2.6) LA Diam: 3.6 cm (2.7 - 3.8) MV EXCURSION: 7.289 mm (> 18.000) MV EF SLOPE: 54 mm/s (70 - 150) EPSS: 1.9 cm MV E Charlie: 1.00 m/s MV DecT: 181 ms MV A Charlie: 0.73 m/s MV E/A Ratio: 1.37 AV maxP.89 mmHg AV meanP.49 mmHg AR PHT: 359 ms RAP: 5.00 mmHg RVSP: 41.62 mmHg FINDINGS -------- This was a technically difficult study with suboptimal views. The left ventricular size is normal. Left ventricular wall thickness is normal. Overall left vent ricular systolic function is mildly impaired with, an EF between 45 - 50 %. There is evidence of pa radoxical septal motion. Increased LAP Grade 2 Diastolic Dysfunction. Apical lateral LV wall adriane on is hypokinetic. The right ventricle is normal in size. LA is severely dilated >40 ml/m2 The right atrial size is normal. Lumason used Aortic valve is trileaflet and is moderately thickened. There is mild aortic regurgitation. There is moderate aortic stenosis present. Peak/mean gradient across the Aortic Valve is 42.89mmHg / 25. 49mmHg. The mitral valve is normal. The mitral valve leaflets are mildly thickened. Mild mitral regurgita tion is present. The tricuspid valve appears structurally normal. Mild tricuspid regurgitation present. There is m ild pulmonary hypertension. The right ventricular systolic pressure, as measured by Doppler, is 41. 62mmHg. There is no pulmonic regurgitation present. The aortic root size is normal. IVC Not well visulized. There is no pericardial effusion. CONCLUSIONS -------- 1. The left ventricular size is normal. 2. Left ventricular wall thickness is normal. 3. Overall left ventricular systolic function is mildly impaired with, an EF between 45 - 50 %. 4. There is evidence of paradoxical septal motion. 5. Increased LAP Grade 2 Diastolic Dysfunction. 6. Apical lateral LV wall motion is hypokinetic. 7. LA is severely dilated >40 ml/m2 8. Lumason used 9. Aortic valve is trileaflet and is moderately thickened. 10. There is mild aortic regurgitation. 11. There is moderate aortic stenosis present. 12. Peak/mean gradient across the Aortic Valve is 42.89mmHg / 25.49mmHg. 13. The mitral valve leaflets are mildly thickened. 14. Mild mitral regurgitation is present. 15. Mild tricuspid regurgitation present. 16. There is mild pulmonary hypertension. 17. The right ventricular systolic pressure, as measured by Doppler, is 41.62mmHg. 18. There is no pericardial effusion. HEAD BUCKER: Lesli Van RDCS
--- NOTE | 2021-09-11 12:43 | P.PN ---
Subjective Patient is doing fairly well today. He denies any chest pain. Hemoglobin level improved after blood transfusion currently in the 8 range. No acute events overnight reported by nursing staff. Objective - Vital Signs Vital signs: Vital Signs Temp 98.3 F 09/11/21 08:00 Pulse 58 L 09/11/21 08:00 Resp 18 09/11/21 08:00 BP 143/65 09/11/21 08:00 Pulse Ox 98 09/11/21 08:00 Intake & Output 09/10/21 09/11/21 09/11/21 18:59 06:59 18:59 Intake Total 860 Output Total 150 Balance 710 Weight 84.822 kg 80.6 kg Intake: Oral 240 Blood Product 620 Rc As-1 Unit 310 [id number] Rc Cpda-1 Unit 310 [id number] Output: Urine 150 Other: Voiding Method Urinal Bedside Commode Bedside Commode Urinal Urinal # Voids 1 # Bowel Movements 1 - Exam General: The patient is awake and alert, in no distress Eye: there is normal conjunctiva bilaterally. Neck: The neck is supple, there is no JVD. Cardiovascular: Normal S1-S2, no S3-S4, no murmurs. Respiratory: Lungs clear to auscultation bilaterally Gastrointestinal: Abdomen is soft, nontender Musculoskeletal: There is no pedal edema. Neurological:. Speech is normal. Skin: Skin is warm and dry - Labs CBC & Chem 7: 09/11/21 07:11 09/11/21 07:11 Labs: Abnormal Lab Results - Last 24 Hours (Table) 09/10/21 09/10/21 09/10/21 Range/Units 09:36 13:03 14:54 RBC (4.30-5.90) m/uL Hgb (13.0-17.5) gm/dL Hct (39.0-53.0) % RDW (11.5-15.5) % Plt Count (150-450) k/uL Chloride (98-107) mmol/L BUN (9-20) mg/dL Creatinine (0.66-1.25) mg/dL Troponin I 5.250 H* 7.900 H* (0.000-0.034) ng/mL Crossmatch See Detail 09/10/21 09/11/21 09/11/21 Range/Units 16:54 07:11 07:11 RBC 2.76 L 2.54 L (4.30-5.90) m/uL Hgb 8.7 L D 8.3 L (13.0-17.5) gm/dL Hct 26.4 L 24.4 L (39.0-53.0) % RDW 16.5 H 17.0 H (11.5-15.5) % Plt Count 106 L 107 L (150-450) k/uL Chloride 108 H (98-107) mmol/L BUN 34 H (9-20) mg/dL Creatinine 1.57 H (0.66-1.25) mg/dL Troponin I (0.000-0.034) ng/mL Crossmatch Assessment and Plan Assessment: This is a 89-year-old male with past medical history noted below that presented to the emergency room with worsening weakness, bloody bowel movement, and chest discomfort. Patient was evaluated in the ER and admitted to the hospital for further management of his medical problems noted below. 1. Acute blood loss anemia 2. Suspected upper GI bleed 3. Non-ST elevation [place] probably attributed to above 4. Acute kidney injury 5. Coronary artery disease with history of CABG 30 years ago 6. Hypertension, hyperlipidemia 7. CODE STATUS, patient is full code. Discussed with him and his daughter at bedside Today, I reviewed his medication list and lab work results 2 units of PRBC transfused on admission Continue IV fluid hydration with normal saline at 75 mL per hour Awaiting general surgery recommendations for upper and lower endoscopy IV Protonix 40 mg twice daily Seen and evaluated by cardiology, Medical management with Lipitor and metoprolol. Avoid anticoagulation and aspirin sitting of GI bleed Echocardiogram showed mildly impaired ejection fraction of 45-50%. There is moderate aortic stenosis Repeat lab work in the morning
--- NOTE | 2021-09-11 12:57 | P.PN ---
Subjective Progress Note Date: 09/11/21 CHIEF COMPLAINT: Anemia HISTORY OF PRESENT ILLNESS: Patient reports having bright red blood in stools as well as black stools. Hemoglobin 6.3 on admission had gone up to 8.7. Hemoglobin is now at 8.3. Did have elevated troponins diagnosed with a non- STEMI due to anemia per cardiology. Patient denies any chest pain or shortness of breath. Prior to admission he had been short of breath and having chest tightness. Afebrile. WBC 6.2 hemoglobin 8.3 platelets 107 creatinine 1.57 last colonoscopy over 5 years ago. History of CABG. Patient reporting no further blood in stools. PHYSICAL EXAM: VITAL SIGNS: Reviewed. GENERAL: Well-developed in no acute distress. HEENT: No sclera icterus. Extraocular movements grossly intact. Moist buccal mucosa. Head is atraumatic, normocephalic. ABDOMEN: Soft. Nondistended. Nontender. NEUROLOGIC: Alert and oriented. Cranial nerves II through XII grossly intact. ASSESSMENT: 1. Acute GI bleed 2. Acute blood loss anemia secondary to GI bleed 3. Non-ST elevated [place] possibly secondary to anemia PLAN: -EGD and colonoscopy are scheduled for tomorrow, 09/12/[address] sung -Start GoLYTELY prep -Keep patient nothing by mouth after midnight -Continue IV fluids -Patient seen and evaluated by cardiology -Continue PPI [facility]ist note has been reviewed by physician. Signing provider agrees with the documented findings, assessment, and plan of care. Objective - Vital Signs Vital signs: Vital Signs Temp 98.3 F 09/11/21 08:00 Pulse 58 L 09/11/21 08:00 Resp 18 09/11/21 08:00 BP 143/65 09/11/21 08:00 Pulse Ox 98 09/11/21 08:00 Intake & Output 09/10/21 09/11/21 09/11/21 18:59 06:59 18:59 Intake Total 860 Output Total 150 Balance 710 Weight 84.822 kg 80.6 kg Intake: Oral 240 Blood Product 620 Rc As-1 Unit 310 [id number] Rc Cpda-1 Unit 310 [id number] Output: Urine 150 Other: Voiding Method Urinal Bedside Commode Bedside Commode Urinal Urinal # Voids 1 # Bowel Movements 1 - Labs CBC & Chem 7: 09/11/21 07:11 09/11/21 07:11 Labs: Abnormal Lab Results - Last 24 Hours (Table) 09/10/21 09/10/21 09/10/21 Range/Units 09:36 13:03 14:54 RBC (4.30-5.90) m/uL Hgb (13.0-17.5) gm/dL Hct (39.0-53.0) % RDW (11.5-15.5) % Plt Count (150-450) k/uL Chloride (98-107) mmol/L BUN (9-20) mg/dL Creatinine (0.66-1.25) mg/dL Troponin I 5.250 H* 7.900 H* (0.000-0.034) ng/mL Crossmatch See Detail 09/10/21 09/11/21 09/11/21 Range/Units 16:54 07:11 07:11 RBC 2.76 L 2.54 L (4.30-5.90) m/uL Hgb 8.7 L D 8.3 L (13.0-17.5) gm/dL Hct 26.4 L 24.4 L (39.0-53.0) % RDW 16.5 H 17.0 H (11.5-15.5) % Plt Count 106 L 107 L (150-450) k/uL Chloride 108 H (98-107) mmol/L BUN 34 H (9-20) mg/dL Creatinine 1.57 H (0.66-1.25) mg/dL Troponin I (0.000-0.034) ng/mL Crossmatch
[2021-09-11] MEDS ORDERED: PEG 3350-NA SULF,BICARB,CL/KCL 4,000 ML BOTTLE PO ONE (13:00)
--- NOTE | 2021-09-11 14:45 | P.PN ---
Subjective Progress Note Date: 09/11/21 HISTORY OF PRESENT ILLNESS: 89-year-old male, patient of Dr. Sky, with a history of coronary artery disease with previous CABG, hypertension, and hyperlipidemia. Patient is admit maury to the hospital secondary to anemia. Patient's hemoglobin today is 8.3, up from 6.3. Patient's aspirin has been discontinued. He is scheduled to undergo endoscopic evaluation tomorrow with general surgery. Echocardiogram completed reveals ejection fraction 45-50%, apical lateral LV wall hypokinesis, moderate aortic stenosis, mild mitral regurgitation, mild tricuspid regurgitation, mild pulmonary hypertension. PHYSICAL EXAM: VITAL SIGNS: Reviewed. GENERAL: Well-developed in no acute distress. NECK: Supple. No JVD or thyromegaly LUNGS: Respirations even and unlabored. Lungs essentially clear to auscultation bilaterally. HEART: Regular rate and rhythm. S1 and S2 heard. Systolic murmur noted. EXTREMITIES: Normal range of motion. No clubbing or cyanosis. Peripheral pulses intact. No lower extremity edema ASSESSMENT: Acute GI bleed Acute blood loss anemia Abnormal troponins, suspect type II [place] secondary to oxygen supply and demand m ismatch secondary to acute blood loss anemia Coronary artery disease with previous CABG Hypertension Hyperlipidemia Aortic stenosis PLAN: Continue to hold aspirin Continue additional cardiac medications Discontinue IV lasix. Begin oral lasix 20mg daily Patient to undergo EGD/colonoscopy tomorrow There are no absolute contraindications from a cardiac standpoint for patient to undergo endoscopic evaluation tomorrow Further recommendations pending patient's course Nurse practitioner note has been reviewed by physician. Signing provider agrees with the documented findings, assessment, and plan of care. Objective - Vital Signs Vital signs: Vital Signs Temp 98.3 F 09/11/21 08:00 Pulse 58 L 09/11/21 08:00 Resp 18 09/11/21 08:00 BP 143/65 09/11/21 08:00 Pulse Ox 98 09/11/21 08:00 Intake & Output 09/10/21 09/11/21 09/11/21 18:59 06:59 18:59 Intake Total 860 Output Total 150 Balance 710 Weight 84.822 kg 80.6 kg Intake: Oral 240 Blood Product 620 Rc As-1 Unit 310 [id number] Rc Cpda-1 Unit 310 [id number] Output: Urine 150 Other: Voiding Method Urinal Bedside Commode Bedside Commode Urinal Urinal # Voids 1 1 # Bowel Movements 1 1 - Labs CBC & Chem 7: 09/11/21 07:11 09/11/21 07:11 Labs: Abnormal Lab Results - Last 24 Hours (Table) 09/10/21 09/10/21 09/10/21 Range/Units 09:36 14:54 16:54 RBC 2.76 L (4.30-5.90) m/uL Hgb 8.7 L D (13.0-17.5) gm/dL Hct 26.4 L (39.0-53.0) % RDW 16.5 H (11.5-15.5) % Plt Count 106 L (150-450) k/uL Chloride (98-107) mmol/L BUN (9-20) mg/dL Creatinine (0.66-1.25) mg/dL Troponin I 7.900 H* (0.000-0.034) ng/mL Crossmatch See Detail 09/11/21 09/11/21 Range/Units 07:11 07:11 RBC 2.54 L (4.30-5.90) m/uL Hgb 8.3 L (13.0-17.5) gm/dL Hct 24.4 L (39.0-53.0) % RDW 17.0 H (11.5-15.5) % Plt Count 107 L (150-450) k/uL Chloride 108 H (98-107) mmol/L BUN 34 H (9-20) mg/dL Creatinine 1.57 H (0.66-1.25) mg/dL Troponin I (0.000-0.034) ng/mL Crossmatch
[2021-09-11] MEDS: SODIUM CHLORIDE 0.9% 1,000 ML IV SCH ×2 (15:58→20:18)
[2021-09-11] MEDS: LACTATED RINGERS 1,000 ML IV SCH (18:33)
[2021-09-12] MEDS ORDERED: LORazepam 2 MG/ML INJ IV STA (01:16)
[2021-09-12] MEDS ORDERED: HALOPERIDOL LACTATE 5 MG/ML 1 ML VIAL IM STA (04:35)
[2021-09-12 07:49] LABS: Anisocytosis Slight; HGB 8.2 gm/dL (13.0-17.5); MCHC 32.8 g/dL (31.0-37.0); MCV 97.3 fL (80.0-100.0); Macrocytosis Slight; Mean Platelet Volume 12.4; Platelet Count 109 k/uL (150-450); RBC 2.57 m/uL (4.30-5.90); RDW 16.9 % (11.5-15.5); WBC 4.6 k/uL (3.8-10.6)
[2021-09-12 07:55] LABS: Calcium 8.1 mg/dL (8.4-10.2); Potassium 3.4 mmol/L (3.5-5.1)
[2021-09-12] MEDS ORDERED: PROPOFOL 10 MG/ML 20 ML VIAL IV ONE (08:39)
[2021-09-12] MEDS ORDERED: LIDOCAINE 1% INJ 10MG/ML (20 ML MDV) ONE (08:39)
[2021-09-12] MEDS ORDERED: SODIUM CHLORIDE 0.9% 500 ML 500 ML IV ONE (09:11)
[2021-09-12] MEDS ORDERED: POTASSIUM CHLORIDE 10 MEQ in WATER FOR INJECTION 1 100ML.BAG IVPB STA (09:16)
--- NOTE | 2021-09-12 09:25 | P.OP ---
Date of Procedure: 09/12/21 Preoperative Diagnosis: GI bleed Postoperative Diagnosis: Antral gastritis Hiatal hernia Esophagitis Lower GI bleed Poor colon prep Procedure(s) Performed: EGD Colonoscopy Anesthesia: MAC Surgeon: Dread Sanderson Pathology: other (Antral, esophagus) Condition: stable Disposition: PACU Description of Procedure: The patient's placed on the lesser table lateral position. He received IV sedation. The gastroscope placed oropharynx passed in the esophagus and stomach. Scope was placed through the pylorus. The first and second portion of the duodenum appeared normal. There is known to blood in the duodenum. Scope was brought back the antrum this is minimal inflamed. A biopsies was performed. The scope was unretroflexed and remainder stomach appeared normal. There is no blood seen in the stomach. There was a hiatal hernia noted. The GE junction was at 38 cm. The distal esophagus appeared inflamed and a biopsies was performed. The proximal esophagus appeared normal. Scope withdrawn for patient. There is no evidence of any upper GI bleed. Next digital rectal exam was performed. This revealed bloody stool in the examining finger. The flexible colonoscope was then placed patient anus passed with colon. Scope was passed beyond the mid transverse colon secondary to poor colonic prep. There is a large amount of liquid bloody stool in the colon. This point scope was withdrawn. The distal transverse colon descending colon and sigmoid colon appeared normal. However the view of the mucosa was quite limited due to the large amount liquid stool. The scope was brought back the rectum and this appeared normal. Scope was withdrawn for patient. The patient appeared to have a lower GI bleed. The source of this has not been determined.
--- NOTE | 2021-09-12 14:35 | P.PN ---
Subjective Progress Note Date: 09/12/21 HISTORY OF PRESENT ILLNESS: 89-year-old male, patient of Dr. Sky, with a history of coronary artery disease with previous CABG, hypertension, and hyperlipidemia. Patient is admit maury to the hospital secondary to anemia. Patient's hemoglobin today is 8.3, up from 6.3. Patient's aspirin has been discontinued. He is scheduled to undergo endoscopic evaluation tomorrow with general surgery. Echocardiogram completed reveals ejection fraction 45-50%, apical lateral LV wall hypokinesis, moderate aortic stenosis, mild mitral regurgitation, mild tricuspid regurgitation, mild pulmonary hypertension. 09/12/2021 Patient underwent EGD and colonoscopy today with general surgery revealing gastritis and esophagitis. Patient had a poor colon prep and was difficult to visualize mucosa. Hemoglobin remains stable. Her nursing, the patient continues to have dark-colored stools. His aspirin remains on hold. PHYSICAL EXAM: VITAL SIGNS: Reviewed. GENERAL: Well-developed in no acute distress. NECK: Supple. No JVD or thyromegaly LUNGS: Respirations even and unlabored. Lungs essentially clear to auscultation bilaterally. HEART: Regular rate and rhythm. S1 and S2 heard. Systolic murmur noted. EXTREMITIES: Normal range of motion. No clubbing or cyanosis. Peripheral pulses intact. No lower extremity edema ASSESSMENT: Acute GI bleed Acute blood loss anemia Abnormal troponins, suspect type II [place] secondary to oxygen supply and demand mismatch secondary to acute blood loss anemia Coronary artery disease with previous CABG Hypertension Hyperlipidemia Aortic stenosis PLAN: Continue to hold aspirin Continue additional cardiac medications The patient is currently stable from a cardiac standpoint We will sign off. Please reconsult if needed. Nurse practitioner note has been reviewed by physician. Signing provider agrees with the documented findings, assessment, and plan of care. Objective - Vital Signs Vital signs: Vital Signs Temp 97.5 F L 09/12/21 09:21 Pulse 64 09/12/21 14:00 Resp 16 09/12/21 14:00 BP 114/56 09/12/21 12:00 Pulse Ox 97 09/12/21 12:00 Intake & Output 09/11/21 09/12/21 09/12/21 18:59 06:59 18:59 Intake Total 200 Balance 200 Intake: IV 200 Oral 0 Other: Voiding Method Bedside Commode Bedside Commode Bedside Commode Urinal # Voids 1 1 # Bowel Movements 1 1 1 - Labs CBC & Chem 7: 09/12/21 06:38 09/12/21 06:38 Labs: Abnormal Lab Results - Last 24 Hours (Table) 09/12/21 09/12/21 Range/Units 06:38 06:38 RBC 2.57 L (4.30-5.90) m/uL Hgb 8.2 L (13.0-17.5) gm/dL Hct 25.0 L (39.0-53.0) % RDW 16.9 H (11.5-15.5) % Plt Count 109 L (150-450) k/uL Potassium 3.4 L (3.5-5.1) mmol/L BUN 28 H (9-20) mg/dL Creatinine 1.44 H (0.66-1.25) mg/dL Calcium 8.1 L (8.4-10.2) mg/dL
[2021-09-12] MEDS: ATORVASTATIN 40 MG TAB PO SCH (14:48)
[2021-09-12] MEDS: METOPROLOL TARTRATE 25 MG TAB PO SCH ×2 (14:48→21:07)
[2021-09-12] MEDS: FUROSEMIDE 20 MG TAB PO SCH (14:49)
[2021-09-12] MEDS: PANTOPRAZOLE 40 MG/10 ML VIAL IVP SCH (14:49)
--- NOTE | 2021-09-12 14:52 | P.PN ---
Subjective Patient is doing well today. He appears slightly confused after his EGD and colonoscopy. No acute events overnight. Hemoglobin stable. Objective - Vital Signs Vital signs: Vital Signs Temp 97.5 F L 09/12/21 09:21 Pulse 64 09/12/21 14:00 Resp 16 09/12/21 14:00 BP 114/56 09/12/21 12:00 Pulse Ox 97 09/12/21 12:00 Intake & Output 09/11/21 09/12/21 09/12/21 18:59 06:59 18:59 Intake Total 200 Balance 200 Intake: IV 200 Oral 0 Other: Voiding Method Bedside Commode Bedside Commode Bedside Commode Urinal # Voids 1 1 # Bowel Movements 1 1 1 - Exam General: The patient is awake and alert, in no distress Eye: there is normal conjunctiva bilaterally. Neck: The neck is supple, there is no JVD. Cardiovascular: Normal S1-S2, no S3-S4, no murmurs. Respiratory: Lungs clear to auscultation bilaterally Gastrointestinal: Abdomen is soft, nontender Musculoskeletal: There is no pedal edema. Neurological:. Speech is normal. Skin: Skin is warm and dry - Labs CBC & Chem 7: 09/12/21 06:38 09/12/21 06:38 Labs: Abnormal Lab Results - Last 24 Hours (Table) 09/12/21 09/12/21 Range/Units 06:38 06:38 RBC 2.57 L (4.30-5.90) m/uL Hgb 8.2 L (13.0-17.5) gm/dL Hct 25.0 L (39.0-53.0) % RDW 16.9 H (11.5-15.5) % Plt Count 109 L (150-450) k/uL Potassium 3.4 L (3.5-5.1) mmol/L BUN 28 H (9-20) mg/dL Creatinine 1.44 H (0.66-1.25) mg/dL Calcium 8.1 L (8.4-10.2) mg/dL Assessment and Plan Assessment: This is a 89-year-old male with past medical history noted below that presented to the emergency room with worsening weakness, bloody bowel movement, and chest discomfort. Patient was evaluated in the ER and admitted to the hospital for further management of his medical problems noted below. 1. Acute blood loss anemia: 2 units of PRBC transfused on admission. Now hemoglobin stable around 8.2 2. Suspected upper GI bleed: Status post EGD and colonoscopy on 09/12 with EGD showing some distal esophagitis with no obvious source of bleeding. Colonoscopy was a poor preparation and limited use secondary to a lot of liquids/bloody stool. Plan for repeat colonoscopy as an outpatient 3. Non-ST elevation MS probably attributed to above: Seen and evaluated by ca rdiology, Medical management with Lipitor and metoprolol. Avoid anticoagulation and aspirin sitting of GI bleed. Echocardiogram showed mildly impaired ejection fraction of 45-50%. There is moderate aortic stenosis 4. Acute kidney injury 5. Coronary artery disease with history of CABG 30 years ago 6. Hypertension, hyperlipidemia 7. CODE STATUS, patient is full code. Discussed with him and his daughter at bedside Today, I reviewed his medication list and lab work results PT/OT evaluation Family interested in subacute rehab possibility at [facility] Repeat lab work in the morning
[2021-09-12] MEDS: LACTATED RINGERS 1,000 ML IV SCH (18:02)
[2021-09-13] MEDS: PANTOPRAZOLE 40 MG TABLET PO SCH (06:31)
[2021-09-13] MEDS: FUROSEMIDE 20 MG TAB PO SCH (08:17)
[2021-09-13] MEDS: METOPROLOL TARTRATE 25 MG TAB PO SCH ×2 (08:17→21:06)
[2021-09-13] MEDS: ATORVASTATIN 40 MG TAB PO SCH (08:17)
[2021-09-13 08:45] LABS: Anisocytosis Slight; HCT 29.8 % (39.0-53.0); HGB 9.5 gm/dL (13.0-17.5); MCH 31.4 pg (25.0-35.0); MCV 98.3 fL (80.0-100.0); Macrocytosis Slight; Mean Platelet Volume 11.9; Platelet Count 116 k/uL (150-450); RBC 3.03 m/uL (4.30-5.90); WBC 6.3 k/uL (3.8-10.6)
[2021-09-13 09:03] LABS: Potassium 3.8 mmol/L (3.5-5.1)
[2021-09-13 09:04] LABS: Calcium 8.7 mg/dL (8.4-10.2)
--- NOTE | 2021-09-13 14:32 | CDI ---
Documentation Clarification Form Date: 09/13/2021 02:07:03 PM From: Jewels Hayward RN CCDS Admit Date: 09/10/2021 10:20:00 AM Patient Name: Silver Xie Visit Number: [id number] Discharge Date: ATTENTION: The Clinical Documentation Specialists (CDI) and [facility] Coding Staff appreciate your assistance in clarifying documentation. Please respond to the clarification below the line at the bottom and electronically sign. The CDI & [facility] Coding staff will review the response and follow-up if needed. Please note: Queries are made part of the Legal Health Record. If you have any questions, please contact the author of this message via ITS. Dr. Terrell Your patient is receiving the following Lasix 09/10 to current Lopressor 09/10 to current, JAN. Additional information regarding the condition/diagnosis being treated. History/Risk Factors: 89-year-old male presents to the ED with chest pain and fatigue. Medical History: HTN and CAD. Clinical Indicators: VS/Pulse OX: 09/10 B/P 133/68, HR 74, Temp 98.0F, RR 18, SpO2 100% room air. Echocardiogram Results: 09/11 Left ventricular systolic function is mildly impaired with EF 45%-50%. Increased LAP grade 2 diastolic dysfunction. Apical lateral LV wall motion is hypokinetic. LA is severely dilated >40ml/m2. Mild aortic regurgitation. Mild mitral regurgitation. Moderate aortic stenosis. Mild pulmonary HTN. Chest X Ray: 09/10 Possible pulmonary venous hypertension and interstitial edema. Treatment: 09/10 to current Lopressor 25mg po bid. 09/10 09/11 Lasix 20mg IV Q12H, 09/11 to current Lasix 20mg po daily. In your professional opinion, can you please clarify the diagnosis being treated? [ X ] Acute Systolic Heart Failure (reduced EF) [ ] Acute Diastolic Heart Failure (preserved EF) [ ] Other, please specify [ ] Unable to determine (Template Last Revised: December 2020) MTDD
--- NOTE | 2021-09-13 14:42 | P.PN ---
Subjective Progress Note Date: 09/13/21 CHIEF COMPLAINT: Anemia HISTORY OF PRESENT ILLNESS: Surgical service following in regards to patient's anemia and GI bleed. Patient is status post EGD and colonoscopy. Results demonstrated antral gastritis, hiatal hernia, esophagitis and lower GI bleed with poor colon prep. He did have melanotic stools. Patient reports no further dark or bloody stools. Hemoglobin is up from 8.2-9.5 he tolerated clear liquid diet this morning. Denies any abdominal pain. Afebrile. WBC 6.3 sodium 138 potassium 3.8 creatinine 1.32 Patient seen and examined with Dr. sung PHYSICAL EXAM: VITAL SIGNS: Reviewed. GENERAL: Well-developed in no acute distress. HEENT: No sclera icterus. Extraocular movements grossly intact. Moist buccal mucosa. Head is atraumatic, normocephalic. ABDOMEN: Soft. Nondistended. Nontender. NEUROLOGIC: Alert and oriented. Cranial nerves II through XII grossly intact. ASSESSMENT: 1. Acute GI bleed 2. Acute blood loss anemia secondary to GI bleed 3. Non-ST elevated NM possibly secondary to anemia PLAN: -Advance diet to regular -Continue PPI -No further surgical intervention -Continue supportive care -Plan for repeat colonoscopy outpatient Physician Librarian note has been reviewed by physician. Signing provider agrees with the documented findings, assessment, and plan of care. Objective - Vital Signs Vital signs: Vital Signs Temp 97.3 F L 09/13/21 08:00 Pulse 56 L 09/13/21 08:00 Resp 18 09/13/21 08:00 BP 145/63 09/13/21 08:00 Pulse Ox 99 09/13/21 08:00 Intake & Output 09/12/21 09/13/21 09/13/21 18:59 06:59 18:59 Intake Total 500 358 Balance 500 358 Weight 78.6 kg Intake: IV 200 Oral 300 358 Other: Voiding Method Bedside Commode Bedside Commode # Voids 1 2 2 # Bowel Movements 1 - Labs CBC & Chem 7: 09/13/21 08:34 09/13/21 08:34 Labs: Abnormal Lab Results - Last 24 Hours (Table) 09/13/21 09/13/21 Range/Units 08:34 08:34 RBC 3.03 L (4.30-5.90) m/uL Hgb 9.5 L (13.0-17.5) gm/dL Hct 29.8 L (39.0-53.0) % RDW 16.0 H (11.5-15.5) % Plt Count 116 L (150-450) k/uL Creatinine 1.32 H (0.66-1.25) mg/dL Glucose 136 H (74-99) mg/dL
[2021-09-13] MEDS: LACTATED RINGERS 1,000 ML IV SCH (18:16)
--- NOTE | 2021-09-13 20:49 | P.PN ---
Subjective Progress Note Date: 09/13/21 (Delayed charting patient seen at 10:15 AM) Patient is an 89-year-old male with coronary artery disease, hypertension, dyslipidemia, and chronic constipation who presented with chest pain and fatigue. He was also noted to have dark stools for approximately one week. In the ER he underwent an extensive evaluation. His found to have a hemoglobin of 6.7. He was also noted to have an elevated troponin. He was admitted and transfused 2 units of packed red blood cells. Cardiology was consulted. He und erwent an echocardiogram which showed an ejection fraction 45-50% with paradoxical septal motion and hypokinetic LV. Cardiology did not recommend invasive intervention at this point in time. He was seen by surgery secondary to GI bleeding. On 09/12 he underwent EGD and colonoscopy. He was found to have antral gastritis, hiatal hernia, esophagitis, and poor colonic prep. Surgery recommended repeat colonoscopy as outpatient. His hemoglobin remained stable. He was not having any abdominal pain. He felt hungry. Patient seen and examined at bedside. Distal diarrhea or dark stools, no chest pain, no shortness of breath. Feeling well and wants to a rehab. General: non toxic, no distress, appears younger than stated age Derm: warm, dry Head: atraumatic, normocephalic, symmetric Eyes: EOMI, no lid lag, anicteric sclera Mouth: no lip lesion, mucus membranes moist Cardiovascular: S1S2 reg, no murmur, positive posterior tibial pulse bilateral, Lungs: CTA bilateral, no rhonchi, no rales , no accessory muscle use Abdominal: soft, nontender to palpation, no guarding, no appreciable orga nomegaly Ext: no gross muscle atrophy, no edema, no contractures Neuro: CN II-XI grossly intact, no focal neuro deficits Psych: Alert, oriented, appropriate affect Acute GI bleed, acute blood loss anemia Esophagitis and gastritis Non-STEMI type II possibly secondary to severe anemia Cardiomyopathy with ejection fraction 45-50% Coronary artery disease Hypertension Dyslipidemia Moderate aortic stenosis Acute kidney injury secondary to hypoperfusion on chronic kidney disease stage III Acute encephalopathy resolved Attempt regular diet today, repeat CBC in a.m. to check for stability, continue with PPI. Renal function appears to have returned to baseline. Cardiology and surgery recommendations appreciated. Repeat colonoscopy as outpatient. Currently aspirin is on hold, patient has been started on Lipitor, Lasix, and Lopressor. Patient's lisinopril will be resumed now that renal function is stable. Anticipate discharge in a.m., half-way facility at office obtained at home with home health is unable to obtain. Objective - Vital Signs Vital signs: Vital Signs Temp 97.9 F 09/13/21 20:00 Pulse 60 09/13/21 20:00 Resp 16 09/13/21 20:00 BP 132/69 09/13/21 20:00 Pulse Ox 97 09/13/21 20:00 Intake & Output 09/13/21 09/13/21 09/14/21 06:59 18:59 06:59 Intake Total 594 Balance 594 Weight 78.6 kg Intake: Oral 594 Other: Voiding Method Bedside Commode # Voids 2 2 - Labs CBC & Chem 7: 09/13/21 08:34 09/13/21 08:34 Labs: Abnormal Lab Results - Last 24 Hours (Table) 09/13/21 09/13/21 Range/Units 08:34 08:34 RBC 3.03 L (4.30-5.90) m/uL Hgb 9.5 L (13.0-17.5) gm/dL Hct 29.8 L (39.0-53.0) % RDW 16.0 H (11.5-15.5) % Plt Count 116 L (150-450) k/uL Creatinine 1.32 H (0.66-1.25) mg/dL Glucose 136 H (74-99) mg/dL
[2021-09-13] MEDS: lisinopriL 10 MG TAB PO SCH (21:07)
[2021-09-14] MEDS: PANTOPRAZOLE 40 MG TABLET PO SCH (06:40)
[2021-09-14] MEDS: METOPROLOL TARTRATE 25 MG TAB PO SCH ×2 (09:11→20:51)
[2021-09-14] MEDS: FUROSEMIDE 20 MG TAB PO SCH (09:11)
[2021-09-14] MEDS: ATORVASTATIN 40 MG TAB PO SCH (09:11)
[2021-09-14] MEDS: lisinopriL 10 MG TAB PO SCH ×2 (09:11→20:51)
[2021-09-14 10:03] LABS: Calcium 8.4 mg/dL (8.4-10.2); Magnesium 1.5 mg/dL (1.6-2.3); Potassium 3.6 mmol/L (3.5-5.1)
[2021-09-14 10:10] LABS: HCT 27.3 % (39.0-53.0); HGB 9.1 gm/dL (13.0-17.5); Hypochromasia Slight; MCH 32.9 pg (25.0-35.0); MCHC 33.4 g/dL (31.0-37.0); MCV 98.3 fL (80.0-100.0); Macrocytosis Slight; RBC 2.78 m/uL (4.30-5.90); RDW 15.6 % (11.5-15.5)
[2021-09-14] MEDS: MAGNESIUM SULFATE-D5W PMX 1 GM in DEXTROSE/WATER 1 100ML.BAG IVPB SCH ×3 (10:42→14:36)
[2021-09-14 11:51] LABS: Platelet Count 125 k/uL (150-450)
[2021-09-14 12:13] LABS: Glucose,Whole Blood 121 mg/dL (75-99)
--- NOTE | 2021-09-14 12:34 | P.PN ---
<KojoPeyton - Last Filed: 09/14/21 12:34> Subjective Progress Note Date: 09/14/21 CHIEF COMPLAINT: Anemia HISTORY OF PRESENT ILLNESS: Surgical service following in regards to patient's anemia and GI bleed. Patient is status post EGD and colonoscopy. Results demonstrated antral gastritis, hiatal hernia, esophagitis and lower GI bleed with poor colon prep. Patient reports no further dark or bloody stools. Denies any abdominal pain. Afebrile. WBC 6.0 hgb 9.5 down to 9.1 PHYSICAL EXAM: VITAL SIGNS: Reviewed. GENERAL: Well-developed in no acute distress. HEENT: No sclera icterus. Extraocular movements grossly intact. Moist buccal mucosa. Head is atraumatic, normocephalic. ABDOMEN: Soft. Nondistended. Nontender. NEUROLOGIC: Alert and oriented. Cranial nerves II through XII grossly intact. ASSESSMENT: 1. Acute GI bleed 2. Acute blood loss anemia secondary to GI bleed 3. Non-ST elevated VA possibly secondary to anemia. Seen by cardiology PLAN: -continue regular diet -Continue PPI -No further surgical intervention -Continue supportive care -Plan for repeat colonoscopy outpatient Physician Probe Operator note has been reviewed by physician. Signing provider agrees with the documented findings, assessment, and plan of care. Objective - Vital Signs Vital signs: Vital Signs Temp 97.6 F 09/14/21 08:00 Pulse 60 09/14/21 08:00 Resp 18 09/14/21 08:00 BP 109/61 09/14/21 08:00 Pulse Ox 98 09/14/21 08:00 Intake & Output 09/13/21 09/14/21 09/14/21 18:59 06:59 18:59 Intake Total 594 120 Balance 594 120 Intake: Oral 594 120 Other: Voiding Method Bedside Commode Bedside Commode # Voids 2 3 - Labs CBC & Chem 7: 09/14/21 08:57 09/14/21 08:57 Labs: Abnormal Lab Results - Last 24 Hours (Table) 09/14/21 09/14/21 Range/Units 08:57 08:57 RBC 2.78 L (4.30-5.90) m/uL Hgb 9.1 L (13.0-17.5) gm/dL Hct 27.3 L (39.0-53.0) % RDW 15.6 H (11.5-15.5) % BUN 23 H (9-20) mg/dL Creatinine 1.58 H (0.66-1.25) mg/dL Glucose 102 H (74-99) mg/dL Magnesium 1.5 L (1.6-2.3) mg/dL <Tyler Emery - Last Filed: 09/14/21 17:49> Subjective As above. Patient had episode of confusion earlier. Neurology evaluation noted. Possible TIA. Aspirin has been started. Apparently he had a bowel movement earlier today without blood although this was not witnessed. Recheck labs tomorrow. Will follow. Objective - Vital Signs Vital signs: Vital Signs Temp 97.8 F 09/14/21 11:45 Pulse 50 L 09/14/21 16:00 Resp 12 09/14/21 16:00 BP 137/72 09/14/21 16:00 Pulse Ox 100 09/14/21 16:00 Intake & Output 09/13/21 09/14/21 09/14/21 18:59 06:59 18:59 Intake Total 594 540 Balance 594 540 Intake: Intake, IV Titration 300 Amount Magnesium Sulfate-D5w Pmx 300 1 gm In Dextrose/Water 1 100ml.bag @ 100 mls/hr IVPB Q1H [facility] Rx#: [id number] Oral 594 240 Other: Voiding Method Bedside Commode Bedside Commode # Voids 2 3 - Labs CBC & Chem 7: 09/14/21 08:57 09/14/21 08:57 Labs: Abnormal Lab Results - Last 24 Hours (Table) 09/14/21 09/14/21 09/14/21 Range/Units 08:57 08:57 12:10 RBC 2.78 L (4.30-5.90) m/uL Hgb 9.1 L (13.0-17.5) gm/dL Hct 27.3 L (39.0-53.0) % RDW 15.6 H (11.5-15.5) % Plt Count 125 L (150-450) k/uL BUN 23 H (9-20) mg/dL Creatinine 1.58 H (0.66-1.25) mg/dL Glucose 102 H (74-99) mg/dL POC Glucose (mg/dL) 121 H (75-99) mg/dL Magnesium 1.5 L (1.6-2.3) mg/dL
--- NOTE | 2021-09-14 12:37 | CT ---
EXAMINATION TYPE: CODE STROKE: CT brain wo cont DATE OF EXAM: 09/14/2021 HISTORY: Code Stroke. Dysphagia. Acute CVA suspected. CT DLP: 1095.4 mGycm. Automated Exposure Control for Dose Reduction was Utilized. TECHNIQUE: CT scan of the head is performed without contrast. COMPARISON: None. FINDINGS: There is no acute intracranial hemorrhage or midline shift identified. There is mild to m oderate diffuse ventricular and sulcal prominence consistent with diffuse age-related cerebral atroph y. There is mild to moderate low-attenuation in the periventricular white matter consistent with chr onic small vessel ischemic change. Some dependent fluid in the right posterior ethmoid sinus axial im age 11. Moderate vascular calcification of the distal internal carotid arteries bilaterally. IMPRESSION: No acute intracranial hemorrhage or midline shift. There is mild to moderate diffuse ag e-related cerebral atrophy and chronic small vessel ischemic change noted.
--- NOTE | 2021-09-14 13:36 | CT ---
EXAMINATION TYPE: CODE STROKE: CTA head neck DATE OF EXAM: 09/14/2021 HISTORY: dysphasia. Acute onset neural deficit. Code stroke. COMPARISON: MRA of the head and neck November 08, 2015 CT DLP: 460.5 mGycm. Automated Exposure Control for Dose Reduction was Utilized. TECHNIQUE: CTA scan of the head and neck is performed with IV Contrast, patient injected with 65 mL of Isovue 370, axial images are obtained, coronal and sagittal reformatted images are reviewed. 3D re constructed images are created on an independent workstation and reviewed. FINDINGS: Carotid/Vascular Structures: Normal 3 vessel origin from the aortic arch with mild peripheral plaque . No significant stenosis. Mild to moderate anterior calcified plaque along course of the left common carotid artery. No significant plaque or stenosis in the more tortuous right common carotid artery. Moderate peripheral calcified plaque extending into proximal internal carotid artery right carotid bu lb with more mixed moderate plaque after this. No significant stenosis. Some noncalcified peripheral plaque right external carotid artery without significant stenosis. Mild to moderate calcified plaque left carotid bulb extending into the internal and external carotid artery without significant stenosi s. Codominant vertebral arteries patent to basilar junction with tortuous course distally redemonstrated . Patent right posterior communicating artery filling the right P2 segment as there is hypoplastic ri ght P1 segment redemonstrated. Patent left posterior communicating artery is redemonstrated. No signi ficant focal stenosis or aneurysm. Anterior circulation shows moderate peripheral calcified plaque di stal internal carotid arteries bilaterally. No significant focal stenosis is seen. Hypoplastic anteri or communicating artery redemonstrated. No aneurysm. Other: Patchy fluid right posterior ethmoid sinus redemonstrated. A few small scattered thyroid nodul es. Mild underlying emphysematous change. Scoliosis in the visualized cervical thoracic spine. IMPRESSION: No significant abnormality is seen. NASCET criteria was used in interpretation of this exam?
[2021-09-14] MEDS: LACTATED RINGERS 1,000 ML IV SCH (15:51)
--- NOTE | 2021-09-14 16:35 | P.CNNES ---
History of Present Illness Consult date: 09/14/21 Requesting physician: Keily Richmond Reason for Consult: CVA History of Present Illness: Patient is a 89-year-old male came to the hospital on 09/10/2021 by ambulance for chest pain. Patient was alert and oriented 4. As per EMS flow sheet, when they arrived, patient was sitting in the bed in his bedroom. Patient was alert and oriented 4. Patient was complaining of chest tightness going on for a week. Patient's vitals at the scene was 127/62, pulse 89, respiration 18 saturation 97%. Patient was found to have significant anemia, GI bleed. Patient underwent upper GI, and colonoscopy, and was diagnosed with antral gastritis, hiatal hernia, esophagitis, lower GI bleed. Patient had been on aspirin 81 mg at home, which was discontinued. Biopsy confirmed reactive gastropathy with focal inflammation. It's been negative. 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 Patient had an event today at around 12 noon today, when patient had an altered level of consciousness with inability to get words out or follow commands. Patient's grandson was present, who states that at 11:30 in the morning he was perfectly fine, having usual conversation. Shortly after he complained of some dizziness, feeling very tired. Shortly after he was noted hard time finding words, which gradually became worse. He was having difficulty getting directions, couldn't answer the questions. He was not able to move his right leg which was unusual, although he does have issues with the right hip, but it was worse than baseline. He was having some problems with the vision, as he could not see straight, couldn't find the straw in front of him or find his nose when checking for [id number] testing. NIH stroke scale was 6. Patient was sent for stat computed tomography scan of head and CTA of head and neck. When he returned to the floor at 12:30 PM, all symptoms have resolved, and his NIH stroke scale was 0. Patient's last known well was 11:30 AM. Stroke code was activated. Case was discussed with Dr. Camacho, stroke neurologist, and patient was not a candidate for TPA, as all his neurological deficits had resolved, although patient's grandson believes that he is still slightly confused but remarkably better as compared to how he was earlier this morning. At present patient feels fine, denies any headache. Patient had a computed tomography scan of head performed today, which revealed no acute intracranial hemorrhage or midline shift. There is mild to moderate diffuse age-related cerebral atrophy and chronic small vessel ischemic change. CTA of head and neck showed no significant abnormality. Mild to moderate anterior calcified plaque along the course of the left common carotid artery. Moderate peripheral calcified plaque extending into proximal ICA right carotid bulb with more mixed moderate plaque after this. No significant stenosis. Anterior circulation shows moderate peripheral calcified plaque distally ICAs bilaterally. Patient's home medications include aspirin 81 mg, vitamin D3, lisinopril 10 mg, epinephrine EpiPen. Patient's blood test shows normal WBC hemoglobin 9.1, platelets 125. Electrolytes are normal, BUN 23, creatinine 1.58. Patient's last troponin was 7.9 on 09/10/2021. Patient's occult blood in the stool was positive. Alfredo virus PCR negative. Patient's blood tests from 09/10/2021 shows hemoglobin of 6.3, elevated MCV 100.2. Patient's last hemoglobin A1c 5.4 on 11/08/2015. Patient had a previous normal MRI of the brain from 11/08/2015 with no evidence of an acute stroke. Patient has hypertension, denies diabetes. He has CAD, history of quadruple bypass. Patient has smoked 1 pack per day for 30 years, quit 40 years ago. He drinks 1 drink of bloody [place] and 1 glass of wine every day. Patient never had a stroke in the past. Patient's telemetry monitoring showing sinus rhythm, and sinus bradycardia. Review of Systems Patient has chronic pain with the right leg. Denies any headache problem with the vision, hoarseness, sore throat, dysphagia. No fever or chills. No abdominal pain, nausea vomiting diarrhea. No chest pain, shortness of breath. No double vision, loss of vision at this time. Denies depression. Past Medical History Past Medical History: Coronary Artery Disease (CAD), Hyperlipidemia, Hypertension Additional Past Medical History / Comment(s): Bun and Creat issues,MURMUR, GOUT, UMBILICAL HERNIA, CONSTIPATION, History of Any Multi-Drug Resistant Organisms: None Reported Past Surgical History: Coronary Bypass/CABG, Heart Catheterization, Joint Replacement, Tonsillectomy Additional Past Surgical History / Comment(s): , RT HIP REPLACEMENT, TRIPLE BYPASS SX, CATARACTS, HEMRROIDECTOMY, SCHRAPNEL REMOVED 195,RT KNEE SX HAD A SEPEARTED MUSCLE FROM HIP TO KNEE. Past Anesthesia/Blood Transfusion Reactions: No Reported Reaction Past Psychological History: No Psychological Hx Reported Smoking Status: Former smoker Past Alcohol Use History: Daily Past Drug Use History: None Reported - Past Family History Mother Family Medical History: Coronary Artery Disease (CAD) Father Family Medical History: No Reported History Medications and Allergies Home Medications Medication Instructions Recorded Confirmed Type Aspirin EC [Ecotrin Low Dose] 81 mg PO DAILY #30 tablet. 05/03/14 09/10/21 Rx Cholecalciferol [Vitamin D3 (25 1,000 unit PO DAILY 05/24/20 09/10/21 History Mcg = 1000 Iu)] lisinopriL [Zestril] 10 mg PO BID 06/23/20 09/10/21 History EPINEPHrine (Auto Inject) [Epipen] 0.3 mg IM ONCE PRN #1 pen 06/25/20 09/10/21 Rx Allergies Allergy/AdvReac Type Severity Reaction Status Date / Time bee venom protein (honey bee) Allergy Anaphylaxis Verified 09/10/21 09:59 adhesive AdvReac tears off Verified 09/10/21 09:59 skin Physical Examination - Vital Signs Vital Signs: Vital Signs Temp Pulse Resp BP Pulse Ox 09/14/21 11:45 97.8 F 72 18 89/52 93 L 09/14/21 08:00 97.6 F 60 18 109/61 98 09/14/21 04:00 98.3 F 47 L 18 103/57 97 09/13/21 23:40 97.9 F 61 18 139/70 100 09/13/21 20:00 97.9 F 60 16 132/69 97 09/13/21 16:00 97.5 F L 55 L 18 134/68 100 Intake and Output 09/14/21 09/14/21 09/14/21 06:59 14:59 22:59 Intake Total 540 Balance 540 Intake: Intake, IV Titration 300 Amount Magnesium Sulfate-D5w Pmx 300 1 gm In Dextrose/Water 1 100ml.bag @ 100 mls/hr IVPB Q1H [facility] Rx#: [id number] Oral 240 Other: Voiding Method Bedside Commode # Voids 3 Patient is an elderly male, very pleasant, in no acute distress. Patient is alert awake oriented to time place and person. No aphasia or dysarthria. Patient can name objects 5/5 presented. He has difficulty recalli ng earlobe, in fact stated "ear lab", before saying correct earlobe. Patient able to follow directions very well. No finger agnosia. No right left confusion. Patient able to point to the door and the window correctly. Speech and language functions are normal. Attention, concentration and fund of knowledge is adequate for age, detailed testing deferred. On cranial examination, pupils are small, equal, round and reacting to light, visual wynn are full on confrontation, with no loss of visual field on double simultaneous stimulation. Patient's extraocular muscles are intact with no nyst agmus. Face is symmetric, tongue protrudes to the midline. Palatal elevation and sensation normal, hearing is moderately decreased for finger rubbing and shoulder shrug normal, facial sensation normal. Shoulder shrug normal. On muscle strength testing, there is no pronator drift and the strength is normal in arms and legs distally and proximally, except right leg which is weak about 3 at the hip flexion, and also weakness of the right hip abduction about 4. Ankle dorsiflexion are 5-on the right, 5 on left. Deep tendon reflexes are 2 in the upper limbs, 1 at the right knee, 2 at the left knee, ankles are 1 and plantars flexor bilaterally. Sensory to touch is equal with no neglect on double simultaneous stimulation. Cerebellar function showed no ataxia for [id number] testing. No dysdiadochokinesia. Tone and bulk of muscles normal. Gait deferred. On general examination, there is no carotid bruit or murmur, S1-S2 audible. Abdomen is soft nontender. Chest is clear. Peripheral pulses are present. No edema. Results - Laboratory Findings CBC and BMP: 09/14/21 08:57 09/14/21 08:57 Abnormal Lab Findings: Abnormal Labs 09/10/21 09/10/21 09/10/21 08:41 08:48 08:48 RBC 1.93 L Hgb 6.3 L* Hct 19.3 L* MCV 100.2 H RDW Plt Count 106 L APTT 20.2 L Potassium Chloride Carbon Dioxide BUN Creatinine Glucose POC Glucose (mg/dL) 125 H Calcium Magnesium Troponin I Total Protein Albumin Crossmatch 09/10/21 09/10/21 09/10/21 08:48 08:48 09:36 RBC Hgb Hct MCV RDW Plt Count APTT Potassium Chloride 111 H Carbon Dioxide 18 L BUN 40 H Creatinine 1.52 H Glucose 111 H POC Glucose (mg/dL) Calcium Magnesium Troponin I 3.190 H* Total Protein 5.6 L Albumin 3.2 L Crossmatch See Detail 09/10/21 09/10/21 09/10/21 13:03 14:54 16:54 RBC 2.76 L Hgb 8.7 L D Hct 26.4 L MCV RDW 16.5 H Plt Count 106 L APTT Potassium Chloride Carbon Dioxide BUN Creatinine Glucose POC Glucose (mg/dL) Calcium Magnesium Troponin I 5.250 H* 7.900 H* Total Protein Albumin Crossmatch 09/11/21 09/11/21 09/12/21 07:11 07:11 06:38 RBC 2.54 L 2.57 L Hgb 8.3 L 8.2 L Hct 24.4 L 25.0 L MCV RDW 17.0 H 16.9 H Plt Count 107 L 109 L APTT Potassium Chloride 108 H Carbon Dioxide BUN 34 H Creatinine 1.57 H Glucose POC Glucose (mg/dL) Calcium Magnesium Troponin I Total Protein Albumin Crossmatch 09/12/21 09/13/21 09/13/21 06:38 08:34 08:34 RBC 3.03 L Hgb 9.5 L Hct 29.8 L MCV RDW 16.0 H Plt Count 116 L APTT Potassium 3.4 L Chloride Carbon Dioxide BUN 28 H Creatinine 1.44 H 1.32 H Glucose 136 H POC Glucose (mg/dL) Calcium 8.1 L Magnesium Troponin I Total Protein Albumin Crossmatch 09/14/21 09/14/21 09/14/21 08:57 08:57 12:10 RBC 2.78 L Hgb 9.1 L Hct 27.3 L MCV RDW 15.6 H Plt Count 125 L APTT Potassium Chloride Carbon Dioxide BUN 23 H Creatinine 1.58 H Glucose 102 H POC Glucose (mg/dL) 121 H Calcium Magnesium 1.5 L Troponin I Total Protein Albumin Crossmatch Assessment and Plan Assessment: * Probable TIA, rule out CVA. Event appears embolic in nature. * Hypertension * Recent non-STEMI, possibly secondary to anemia. * Coronary artery disease * Severe anemia due to GI bleed. * Mild alcoholism. * Macrocytosis, due to above, rule out B12 deficiency. * X tobacco use (quit 40 years ago) Plan: * Patient's NIH stroke scale is 0. He has some residual right leg weakness but is chronic. We will check MRI of brain to rule out CVA. * CTA of head and neck showed no significant abnormality. Mild to moderate anterior calcified plaque along the course of the left common carotid artery. Moderate peripheral calcified plaque extending into proximal ICA right carotid bulb with more mixed moderate plaque after this. No significant stenosis. Anterior circulation shows moderate peripheral calcified plaque d istally in ICAs bilaterally. * 2-D echo shows normal left ventricular size. Normal left-ventricular wall thickness. Evidence of paroxysmal septal motion. Apical lateral LV wall motion is hypokinetic. Left atrium is severely dilated. Mild AR. Moderate aortic stenosis. Mitral valve leaflets are mildly thickened. Mild MR. * Fasting lipid panel, hemoglobin A1c. * Patient needs to be started on antiplatelet medication as soon as possible. I would prefer dual antiplatelet medication for 21 days, unless contra indicated from GI standpoint. I spoke to patient's nurse, who will check with the surgeon for clearance for antiplatelet medication BRENDA. * Continue Lipitor 40 mg. * Continue telemetry monitoring. * Continue neuro checks. Please report for any changes in medical condition. * Neurology will follow.
[2021-09-14] MEDS: ASPIRIN 81 MG PO SCH (17:07)
--- NOTE | 2021-09-14 19:59 | P.PN ---
Subjective Progress Note Date: 09/14/21 (delayed charting seen twice) Principal diagnosis: GI bleed Patient is an 89-year-old male with coronary artery disease, hypertension, dyslipidemia, and chronic constipation who presented with chest pain and fatigue. He was also noted to have dark stools for approximately one week. In the ER he underwent an extensive evaluation. His found to have a hemoglobin of 6.7. He was also noted to have an elevated troponin. He was admitted and transfused 2 units of packed red blood cells. Cardiology was consulted. He underwent an echocardiogram which showed an ejection fraction 45-50% with paradoxical septal motion and hypokinetic LV. Cardiology did not recommend invasive intervention at this point in time. He was seen by surgery secondary to GI bleeding. On 09/12 he underwent EGD and colonoscopy. He was found to have antral gastritis, hiatal hernia, esophagitis, and poor colonic prep. Surgery recommended repeat colonoscopy as outpatient. His hemoglobin remained stable. He was not having any abdominal pain. He felt hungry. He tolerated a diet without any recurrent bleeding. On the morning of 09/14 arrangements are being made for discharge. He then had an episode of inability to speak and follow commands. Code stroke was activated. CT brain showed no acute intracranial hemorrhage or midline shift with mild to moderate diffuse age-related atrophy. CTA of the head and neck showed no significant abnormality. He was seen by neuro who was concern for TIA. They recommended aspirin and Plavix however due to GI bleed will start aspirin at this time. Patient seen and examined at bedside. Awake and alert, denies recurrent bleeding, no abdominal pain, no nausea or vomiting. General: non toxic, no distress, appears younger than stated age Derm: warm, dry Head: atraumatic, normocephalic, symmetric Eyes: EOMI, no lid lag, anicteric sclera Mouth: no lip lesion, mucus membranes moist Cardiovascular: S1S2 reg, no murmur, positive posterior tibial pulse bilateral, Lungs: CTA bilateral, no rhonchi, no rales , no accessory muscle use Abdominal: soft, nontender to palpation, no guarding, no appreciable organomegaly Ext: no gross muscle atrophy, no edema, no contractures Neuro: CN II-XI grossly intact, no focal neuro deficits Psych: Alert, oriented, appropriate affect Probable TIA versus CVA -Neurology recommendations appreciated -Continue with telemetry -Aspirin, statin -Consider Plavix if patient is able to tolerate aspirin about recurrent GI bleeding -Await MRI -Check lipid profile -Echocardiogram with ejection fraction 45-50%, apical LV wall is hypokinetic Acute GI bleed, acute blood loss anemia Esophagitis and gastritis -Unable to complete colonoscopy due to poor prep -Continue with PPI -Surgery recommendations appreciated: Outpatient follow-up Non-STEMI type II possibly secondary to severe anemia 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 Objective - Vital Signs Vital signs: Vital Signs Temp 97.8 F 09/14/21 11:45 Pulse 50 L 09/14/21 16:00 Resp 12 09/14/21 16:00 BP 137/72 09/14/21 16:00 Pulse Ox 100 09/14/21 16:00 Intake & Output 09/14/21 09/14/21 09/15/21 06:59 18:59 06:59 Intake Total 660 Balance 660 Intake: Intake, IV Titration 300 Amount Magnesium Sulfate-D5w Pmx 300 1 gm In Dextrose/Water 1 100ml.bag @ 100 mls/hr IVPB Q1H [facility] Rx#: [id number] Oral 360 Other: Voiding Method Bedside Commode # Voids 3 - Labs CBC & Chem 7: 09/14/21 08:57 09/14/21 08:57 Labs: Abnormal Lab Results - Last 24 Hours (Table) 09/14/21 09/14/21 09/14/21 Range/Units 08:57 08:57 12:10 RBC 2.78 L (4.30-5.90) m/uL Hgb 9.1 L (13.0-17.5) gm/dL Hct 27.3 L (39.0-53.0) % RDW 15.6 H (11.5-15.5) % Plt Count 125 L (150-450) k/uL BUN 23 H (9-20) mg/dL Creatinine 1.58 H (0.66-1.25) mg/dL Glucose 102 H (74-99) mg/dL POC Glucose (mg/dL) 121 H (75-99) mg/dL Magnesium 1.5 L (1.6-2.3) mg/dL
[2021-09-15 01:16] LABS: Folate, Serum 19.5 ng/mL (4.40-31.00)
[2021-09-15] MEDS: PANTOPRAZOLE 40 MG TABLET PO SCH (05:51)
[2021-09-15] MEDS: ATORVASTATIN 40 MG TAB PO SCH (09:15)
[2021-09-15] MEDS: lisinopriL 10 MG TAB PO SCH ×2 (09:15→20:32)
[2021-09-15] MEDS: METOPROLOL TARTRATE 25 MG TAB PO SCH (09:15)
[2021-09-15] MEDS: ASPIRIN 81 MG PO SCH (09:15)
[2021-09-15] MEDS: FUROSEMIDE 20 MG TAB PO SCH (09:16)
[2021-09-15] MEDS: ENOXAPARIN 40 MG/0.4 ML SYRINGE SQ SCH (09:16)
[2021-09-15 09:54] LABS: HCT 27.9 % (39.0-53.0); HGB 9.1 gm/dL (13.0-17.5); Hypochromasia Slight; MCH 32.1 pg (25.0-35.0); MCHC 32.4 g/dL (31.0-37.0); MCV 98.9 fL (80.0-100.0); Macrocytosis Slight; Mean Platelet Volume 12.1; RBC 2.82 m/uL (4.30-5.90); RDW 15.6 % (11.5-15.5); WBC 6.1 k/uL (3.8-10.6)
[2021-09-15 10:11] LABS: Calcium 8.5 mg/dL (8.4-10.2); Potassium 3.6 mmol/L (3.5-5.1)
--- NOTE | 2021-09-15 10:41 | P.PN ---
<Peyton Varma - Last Filed: 09/15/21 10:36> Subjective Progress Note Date: 09/15/21 CHIEF COMPLAINT: Anemia HISTORY OF PRESENT ILLNESS: Surgical service following in regards to patient's anemia and GI bleed. Patient is status post EGD and colonoscopy. Results demonstrated antral gastritis, hiatal hernia, esophagitis and lower GI bleed with poor colon prep. Denies any abdominal pain. Patient had an unwitnessed stool that he reports was black. He is being worked up for possible TIA. He was started on aspirin 81 mg daily yesterday. Patient is talking without difficulty. He has been up and ambulating. Neurology has an MRI of the brain ordered for today. Afebrile. WBC 6.1 hemoglobin stable at 9.1 creatinine is 1.66 PHYSICAL EXAM: VITAL SIGNS: Reviewed. GENERAL: Well-developed in no acute distress. HEENT: No sclera icterus. Extraocular movements grossly intact. Moist buccal mucosa. Head is atraumatic, normocephalic. ABDOMEN: Soft. Nondistended. Nontender. NEUROLOGIC: Alert and oriented. Cranial nerves II through XII grossly intact. ASSESSMENT: 1. Acute GI bleed 2. Acute blood loss anemia secondary to GI bleed 3. Non-ST elevated [place] possibly secondary to anemia. Seen by cardiology 4. Possible TIA PLAN: -continue regular diet -Continue PPI -No further surgical intervention -Continue supportive care -Plan for repeat colonoscopy outpatient -Continue neuro workup -Okay for aspirin 81 mg daily -Continue to monitor hemoglobin and any signs or symptoms of bleeding Physician [employer] note has been reviewed by physician. Signing provider agrees with the documented findings, assessment, and plan of care. Objective - Vital Signs Vital signs: Vital Signs Temp 97 F L 09/15/21 07:45 Pulse 46 L 09/15/21 10:25 Resp 16 09/15/21 07:45 BP 105/53 09/15/21 10:25 Pulse Ox 100 09/15/21 07:45 Intake & Output 09/14/21 09/15/21 09/15/21 18:59 06:59 18:59 Intake Total 660 480 Balance 660 480 Weight 79.5 kg Intake: Intake, IV Titration 300 Amount Magnesium Sulfate-D5w Pmx 300 1 gm In Dextrose/Water 1 100ml.bag @ 100 mls/hr IVPB Q1H [facility] Rx#: [id number] Oral 360 480 Other: Voiding Method Bedside Commode # Voids 4 1 - Labs CBC & Chem 7: 09/15/21 09:05 09/15/21 09:05 Labs: Abnormal Lab Results - Last 24 Hours (Table) 09/14/21 09/14/21 09/15/21 Range/Units 08:57 12:10 09:05 RBC (4.30-5.90) m/uL Hgb (13.0-17.5) gm/dL Hct (39.0-53.0) % RDW (11.5-15.5) % Plt Count 125 L (150-450) k/uL BUN 28 H (9-20) mg/dL Creatinine 1.66 H (0.66-1.25) mg/dL Glucose 112 H (74-99) mg/dL POC Glucose (mg/dL) 121 H (75-99) mg/dL 09/15/21 Range/Units 09:05 RBC 2.82 L (4.30-5.90) m/uL Hgb 9.1 L (13.0-17.5) gm/dL Hct 27.9 L (39.0-53.0) % RDW 15.6 H (11.5-15.5) % Plt Count (150-450) k/uL BUN (9-20) mg/dL Creatinine (0.66-1.25) mg/dL Glucose (74-99) mg/dL POC Glucose (mg/dL) (75-99) mg/dL <Tyler Emery - Last Filed: 09/15/21 14:55> Subjective As above. Patient says his stool today was a dark brown in color. Hemoglobin stable at 9.1. Aspirin restarted. Patient apparently had another episode of confusion after his morning medications. MRI being performed today. We'll follow. Objective - Vital Signs Vital signs: Vital Signs Temp 97 F L 09/15/21 07:45 Pulse 51 L 09/15/21 11:45 Resp 16 09/15/21 11:45 BP 100/52 09/15/21 13:19 Pulse Ox 96 09/15/21 11:45 Intake & Output 09/14/21 09/15/21 09/15/21 18:59 06:59 18:59 Intake Total 660 600 Balance 660 600 Weight 79.5 kg 79.5 kg Intake: Intake, IV Titration 300 Amount Magnesium Sulfate-D5w Pmx 300 1 gm In Dextrose/Water 1 100ml.bag @ 100 mls/hr IVPB Q1H [facility] Rx#: [id number] Oral 360 600 Other: Voiding Method Bedside Commode # Voids 4 1 - Labs CBC & Chem 7: 09/15/21 09:05 09/15/21 09:05 Labs: Abnormal Lab Results - Last 24 Hours (Table) 09/15/21 09/15/21 Range/Units 09:05 09:05 RBC 2.82 L (4.30-5.90) m/uL Hgb 9.1 L (13.0-17.5) gm/dL Hct 27.9 L (39.0-53.0) % RDW 15.6 H (11.5-15.5) % Plt Count 138 L (150-450) k/uL BUN 28 H (9-20) mg/dL Creatinine 1.66 H (0.66-1.25) mg/dL Glucose 112 H (74-99) mg/dL
[2021-09-15] MEDS ORDERED: SODIUM CHLORIDE 0.9% 500 ML 500 ML IV ONE (12:06)
[2021-09-15 13:19] VITALS: BMI 24.4
[2021-09-15 13:30] LABS: Platelet Count 138 k/uL (150-450)
--- NOTE | 2021-09-15 15:07 | MR ---
MR brain without contrast HISTORY: Code stroke versus TIA, dysphasia Multiplanar multisequence imaging obtained through the brain. Correlation to prior brain MRI 11/08/2015, brain CT 09/14/2021 There is motion on the exam, there is no restricted diffusion. Periventricular confluent and scattere d hyperintensities on inversion recovery T2-weighted sequences, subcortical hyperintensity and perica llosal hyperintensity is noted and has progressed compared to prior exam. Inflammatory changes presen t within the ethmoid air cells, orbits show symmetric appearance. Cerebellopontine angles, corpus brando losum, pituitary, cervical medullary junction are stable. Cortical atrophy is noted. IMPRESSION: No acute abnormality. Age-related changes of atrophy and chronic small vessel ischemia, w rupal matter signal changes have progressed in the interval. Sinus disease.
[2021-09-15] MEDS: LACTATED RINGERS 1,000 ML IV SCH (15:11)
[2021-09-15 17:52] LABS: Chol/HDL Ratio 2.41 Ratio; HDL Cholesterol 34.8 mg/dL (40.00-60.00); LDL Cholesterol,Calculated 35.4 mg/dL (0.0-131.0); Triglycerides 68.9 mg/dL (0.00-149.00); VLDL Calculation 13.78 mg/dL (5.00-40.00)
--- NOTE | 2021-09-15 19:02 | P.PN ---
Subjective Progress Note Date: 09/15/21 Patient was seen for a follow-up. Offers no complaints. All symptoms resolved. Objective - Vital Signs Vital signs: Vital Signs Temp 96.5 F L 09/15/21 15:15 Pulse 51 L 09/15/21 15:15 Resp 16 09/15/21 15:15 BP 105/49 09/15/21 15:15 Pulse Ox 98 09/15/21 15:15 Intake & Output 09/14/21 09/15/21 09/15/21 18:59 06:59 18:59 Intake Total 660 720 Balance 660 720 Weight 79.5 kg 79.5 kg Intake: Intake, IV Titration 300 Amount Magnesium Sulfate-D5w Pmx 300 1 gm In Dextrose/Water 1 100ml.bag @ 100 mls/hr IVPB Q1H ANDRY Rx#: [id number] Oral 360 720 Other: Voiding Method Bedside Commode # Voids 4 4 - Exam Nonfocal. Mental status normal. Cranial nerves and strength normal. No ataxia. - Labs CBC & Chem 7: 09/15/21 09:05 09/15/21 09:05 Labs: Abnormal Lab Results - Last 24 Hours (Table) 09/15/21 09/15/21 Range/Units 09:05 09:05 RBC 2.82 L (4.30-5.90) m/uL Hgb 9.1 L (13.0-17.5) gm/dL Hct 27.9 L (39.0-53.0) % RDW 15.6 H (11.5-15.5) % Plt Count 138 L (150-450) k/uL BUN 28 H (9-20) mg/dL Creatinine 1.66 H (0.66-1.25) mg/dL Glucose 112 H (74-99) mg/dL HDL Cholesterol 34.80 L (40.00-60.00) mg/dL Assessment and Plan Assessment: * Probable TIA. Event appears embolic in nature, likely due to temporary discontinuation of antiplatelet medication for GI bleed. CVA ruled out with MRI. * Hypertension * Recent non-STEMI, possibly secondary to anemia. * Coronary artery disease * Severe anemia due to GI bleed. * Mild renal insufficiency. * Mild alcoholism. * Macrocytosis, due to above, rule out B12 deficiency. * X tobacco use (quit 40 years ago) Plan: * MRI of the brain negative for an acute stroke. * Continue aspirin 81 mg daily. Patient also on Protonix 40 mg daily for gastric ulcer prophylaxis. * CTA of head and neck showed no significant abnormality. Mild to moderate anterior calcified plaque along the course of the left common carotid artery. Moderate peripheral calcified plaque extending into proximal ICA right carotid bulb with more mixed moderate plaque after this. No significant stenosis. Anterior circulation shows moderate peripheral calcified plaque distally in ICAs bilaterally. * 2-D echo shows normal left ventricular size. Normal left-ventricular wall thickness. Evidence of paroxysmal septal motion. Apical lateral LV wall motion is hypokinetic. Left atrium is severely dilated. Mild AR. Moderate aortic stenosis. Mitral valve leaflets are mildly thickened. Mild MR. * Fasting lipid panel with cholesterol 84, LDL 35, HDL 34 and triglycerides 68. Continue Lipitor 40 mg. * Hemoglobin A1c 4.6. * Patient needs to be started on antiplatelet medication as soon as possible. I would prefer dual antiplatelet medication for 21 days, unless contra indicated from GI standpoint. Patient started on aspirin 81 mg daily, tolerating well. Hemoglobin is stable 9.1. * Continue Lipitor 40 mg. * Continue telemetry monitoring. * Dr. Díaz will be covering neurology service in the morning. Please call neurology if any concerns.
[2021-09-15] MEDS: METOPROLOL TARTRATE 12.5 MG TAB PO SCH (20:34)
--- NOTE | 2021-09-15 20:42 | P.PN ---
Subjective Progress Note Date: 09/15/21 (delayed charting seen at 0945) Principal diagnosis: GI bleed Patient is an 89-year-old male with coronary artery disease, hypertension, dyslipidemia, and chronic constipation who presented with chest pain and fatigue. He was also noted to have dark stools for approximately one week. In the ER he underwent an extensive evaluation. His found to have a hemoglobin of 6.7. He was also noted to have an elevated troponin. He was admitted and transfused 2 units of packed red blood cells. Cardiology was consulted. He underwent an echocardiogram which showed an ejection fraction 45-50% with paradoxical septal motion and hypokinetic LV. Cardiology did not recommend invasive intervention at this point in time. He was seen by surgery secondary to GI bleeding. On 09/12 he underwent EGD and colonoscopy. He was found to have antral gastritis, hiatal hernia, esophagitis, and poor colonic prep. Surgery recommended repeat colonoscopy as outpatient. His hemoglobin remained stable. He was not having any abdominal pain. He felt hungry. He tolerated a diet without any recurrent bleeding. On the morning of 09/14 arrangements are being made for discharge. He then had an episode of inability to speak and follow commands. Code stroke was activated. CT brain showed no acute intracranial hemorrhage or midline shift with mild to moderate diffuse age-related atrophy. CTA of the head and neck showed no significant abnormality. He was seen by neuro who was concern for TIA. They recommended aspirin and Plavix however due to GI bleed will start aspirin at this time. Patient seen and examined at bedside. Awake and alert, denies recurrent bleeding, no abdominal pain, no nausea or vomiting. State that stool is still black. General: non toxic, no distress, appears younger than stated age Derm: warm, dry Head: atraumatic, normocephalic, symmetric Eyes: EOMI, no lid lag, anicteric sclera Mouth: no lip lesion, mucus membranes moist Cardiovascular: S1S2 reg, no murmur, positive posterior tibial pulse bilateral, Lungs: CTA bilateral, no rhonchi, no rales , no accessory muscle use Abdominal: soft, nontender to palpation, no guarding, no appreciable organomegaly Ext: no gross muscle atrophy, no edema, no contractures Neuro: CN II-XI grossly intact, no focal neuro deficits Psych: Alert, oriented, appropriate affect Probable TIA -Neurology recommendations appreciated -Continue with telemetry -Aspirin, statin -Consider Plavix if patient is able to tolerate aspirin about recurrent GI bleeding -MRI without CVA and demonstrated age related atrophy -lipid profile with in normal limits -Echocardiogram with ejection fraction 45-50%, apical LV wall is hypokinetic Acute GI bleed, acute blood loss anemia, Thrombocytopenia Esophagitis and gastritis -Unable to complete colonoscopy due to poor prep -Continue with PPI -Surgery recommendations appreciated: Outpatient follow-up - monitor closely with ASA Non-STEMI type II possibly secondary to severe anemia Cardiomyopathy with ejection fraction 45-50% Coronary artery disease Hypertension Dyslipidemia Moderate aortic stenosis -Aspirin has been resumed -Continue with Lipitor -Lisinopril, Lopressor, Lasix Acute kidney injury secondary to hypoperfusion on chronic kidney disease stage III Acute encephalopathy resolved DVT prophylaxis: Lovenox Discussed with:, Nursing, family Anticipated discharge: Undetermined Anticipated discharge place: [facility] facility A total of 35 minutes was spent on the care of this complex patient more than 50% of the time was spent in counseling and care coordination. Objective - Vital Signs Vital signs: Vital Signs Temp 96.5 F L 09/15/21 15:15 Pulse 51 L 09/15/21 15:15 Resp 16 09/15/21 15:15 BP 105/49 09/15/21 15:15 Pulse Ox 98 09/15/21 15:15 Intake & Output 09/15/21 09/15/21 09/16/21 06:59 18:59 06:59 Intake Total 720 Balance 720 Weight 79.5 kg 79.5 kg Intake: Oral 720 Other: Voiding Method Bedside Commode # Voids 4 4 - Labs CBC & Chem 7: 09/15/21 09:05 09/15/21 09:05 Labs: Abnormal Lab Results - Last 24 Hours (Table) 09/15/21 09/15/21 Range/Units 09:05 09:05 RBC 2.82 L (4.30-5.90) m/uL Hgb 9.1 L (13.0-17.5) gm/dL Hct 27.9 L (39.0-53.0) % RDW 15.6 H (11.5-15.5) % Plt Count 138 L (150-450) k/uL BUN 28 H (9-20) mg/dL Creatinine 1.66 H (0.66-1.25) mg/dL Glucose 112 H (74-99) mg/dL HDL Cholesterol 34.80 L (40.00-60.00) mg/dL
[2021-09-16] MEDS: PANTOPRAZOLE 40 MG TABLET PO SCH ×2 (06:29→08:01)
[2021-09-16] MEDS: ENOXAPARIN 40 MG/0.4 ML SYRINGE SQ SCH (08:00)
[2021-09-16] MEDS: lisinopriL 10 MG TAB PO SCH ×2 (08:00→19:52)
[2021-09-16] MEDS: METOPROLOL TARTRATE 12.5 MG TAB PO SCH (08:00)
[2021-09-16] MEDS: ASPIRIN 81 MG PO SCH (08:00)
[2021-09-16] MEDS: ATORVASTATIN 40 MG TAB PO SCH (08:00)
[2021-09-16 11:01] LABS: HCT 29.2 % (39.0-53.0); HGB 9.4 gm/dL (13.0-17.5); Hypochromasia Slight; MCH 31.9 pg (25.0-35.0); MCHC 32.2 g/dL (31.0-37.0); MCV 99.1 fL (80.0-100.0); Macrocytosis Slight; Mean Platelet Volume 11.2; Platelet Count 157 k/uL (150-450); RBC 2.95 m/uL (4.30-5.90); RDW 15.2 % (11.5-15.5); WBC 6.8 k/uL (3.8-10.6)
[2021-09-16 11:13] LABS: Calcium 8.5 mg/dL (8.4-10.2); Potassium 3.7 mmol/L (3.5-5.1)
--- NOTE | 2021-09-16 12:58 | P.PN ---
Subjective Progress Note Date: 09/16/21 Principal diagnosis: GI bleed Patient had another episode of confusion after his morning medications. No syncope or lightheadedness. No bowel movement this morning. Hemoglobin is stable. Objective - Vital Signs Vital signs: Vital Signs Temp 98.0 F 09/16/21 07:44 Pulse 52 L 09/16/21 12:48 Resp 18 09/16/21 12:48 BP 111/61 09/16/21 12:48 Pulse Ox 95 09/16/21 12:48 Intake & Output 09/15/21 09/16/21 09/16/21 18:59 06:59 18:59 Intake Total 720 180 Balance 720 180 Weight 79.5 kg 80.1 kg Intake: Oral 720 180 Other: Voiding Method Toilet Toilet Bedside Commode Urinal # Voids 4 2 - Exam Abdomen: Soft, nontender, nondistended - Labs CBC & Chem 7: 09/16/21 10:45 09/16/21 10:45 Labs: Abnormal Lab Results - Last 24 Hours (Table) 09/15/21 09/15/21 09/16/21 Range/Units 09:05 09:05 10:45 RBC 2.95 L (4.30-5.90) m/uL Hgb 9.4 L (13.0-17.5) gm/dL Hct 29.2 L (39.0-53.0) % Plt Count 138 L (150-450) k/uL BUN (9-20) mg/dL Creatinine (0.66-1.25) mg/dL Glucose (74-99) mg/dL HDL Cholesterol 34.80 L (40.00-60.00) mg/dL 09/16/21 Range/Units 10:45 RBC (4.30-5.90) m/uL Hgb (13.0-17.5) gm/dL Hct (39.0-53.0) % Plt Count (150-450) k/uL BUN 31 H (9-20) mg/dL Creatinine 1.80 H (0.66-1.25) mg/dL Glucose 107 H (74-99) mg/dL HDL Cholesterol (40.00-60.00) mg/dL Assessment and Plan (1) GI bleed Narrative/Plan: 89-year-old male with GI bleed. Bleeding seems to have stopped at this point. Hemoglobin stable at 9.4. Continue regular diet. Continue aspirin. We'll follow. Current Visit: Yes Status: Acute Code(s): K92.2 - GASTROINTESTINAL HEMORRHAGE, UNSPECIFIED SNOMED Code(s): 61565141
--- NOTE | 2021-09-16 15:02 | P.PN ---
Subjective Progress Note Date: 09/16/21 Principal diagnosis: GI bleed Patient is an 89-year-old male with coronary artery disease, hypertension, dyslipidemia, and chronic constipation who presented with chest pain and fa tigue. He was also noted to have dark stools for approximately one week. In the ER he underwent an extensive evaluation. His found to have a hemoglobin of 6.7. He was also noted to have an elevated troponin. He was admitted and transfused 2 units of packed red blood cells. Cardiology was consulted. He underwent an echocardiogram which showed an ejection fraction 45-50% with paradoxical septal motion and hypokinetic LV. Cardiology did not recommend invasive intervention at this point in time. He was seen by surgery secondary to GI bleeding. On 09/12 he underwent EGD and colonoscopy. He was found to have antral gastritis, hiatal hernia, esophagitis, and poor colonic prep. Surgery re commended repeat colonoscopy as outpatient. His hemoglobin remained stable. He was not having any abdominal pain. He felt hungry. He tolerated a diet without any recurrent bleeding. On the morning of 09/14 arrangements are being made for discharge. He then had an episode of inability to speak and follow commands. Code stroke was activated. CT brain showed no acute intracranial hemorrhage or midline shift with mild to moderate diffuse age-related atrophy. CTA of the head and neck showed no significant abnormality. He was seen by neuro who was concern for TIA. They recommended aspirin and Plavix however due to GI bleed will start aspirin at this time. He developed Hypotension and his metoprolol dose was decreased, he again had hypotension after a dose and his metoprolol was discontinued. It was felt that his confusional episode was more related to hypotension than true TIA . Patient seen and examined at bedside. With daughter present. He was feeling dizzy a few minutes ago but it is since resolved. This is his third episode of dizziness each after taking the metoprolol medication. He denies any chest discomfort or shortness of breath. His stools are dark brown. General: non toxic, no distress, appears younger than stated age Derm: warm, dry Head: atraumatic, normocephalic, symmetric Eyes: EOMI, no lid lag, anicteric sclera Mouth: no lip lesion, mucus membranes moist Cardiovascular: S1S2 irreg, no murmur, positive posterior tibial pulse bilateral, Lungs: CTA bilateral, no rhonchi, no rales , no accessory muscle use Abdominal: soft, nontender to palpation, no guarding, no appreciable organomegaly Ext: no gross muscle atrophy, no edema, no contractures Neuro: CN II-XI grossly intact, no focal neuro deficits Psych: Alert, oriented, appropriate affect Dizziness, suspect due to hypotension less likely due to TIA -Neurology recommendations appreciated -Continue with telemetry -Aspirin, statin -Long discussion with family and at this time risks of plavix due to recent GI bleed with unknown cause plavix is likely bigger risk than ASA alone, and symptoms recurrent when standing with low blood pressure. -MRI without CVA and demonstrated age related atrophy -lipid profile with in normal limits -Echocardiogram with ejection fraction 45-50%, apical LV wall is hypokinetic Acute GI bleed, acute blood loss anemia, Thrombocytopenia Esophagitis and gastritis -Unable to complete colonoscopy due to poor prep -Continue with PPI -Surgery recommendations appreciated: Outpatient follow-up - monitor closely with ASA Non-STEMI type II possibly secondary to severe anemia Cardiomyopathy with ejection fraction 45-50% Coronary artery disease Hypertension Dyslipidemia Moderate aortic stenosis -Aspirin has been resumed -Continue with Lipitor -Lisinopril, Lasix - lopressor held to due bradycardia and orthostatic hypotension Acute kidney injury secondary to hypoperfusion on chronic kidney disease stage III Acute encephalopathy resolved DVT prophylaxis: Lovenox Discussed with:, Nursing, family Anticipated discharge:in 1-[address]: home with home health A total of 35 minutes was spent on the care of this complex patient more than 50% of the time was spent in counseling and care coordination. Objective - Vital Signs Vital signs: Vital Signs Temp 98.0 F 09/16/21 07:44 Pulse 52 L 09/16/21 13:15 Resp 18 09/16/21 12:48 BP 111/61 09/16/21 12:48 Pulse Ox 95 09/16/21 12:48 Intake & Output 09/15/21 09/16/21 09/16/21 18:59 06:59 18:59 Intake Total 720 360 Balance 720 360 Weight 79.5 kg 80.1 kg Intake: Oral 720 360 Other: Voiding Method Toilet Toilet Bedside Commode Urinal # Voids 4 2 - Labs CBC & Chem 7: 09/16/21 10:45 09/16/21 10:45 Labs: Abnormal Lab Results - Last 24 Hours (Table) 09/15/21 09/16/21 09/16/21 Range/Units 09:05 10:45 10:45 RBC 2.95 L (4.30-5.90) m/uL Hgb 9.4 L (13.0-17.5) gm/dL Hct 29.2 L (39.0-53.0) % BUN 31 H (9-20) mg/dL Creatinine 1.80 H (0.66-1.25) mg/dL Glucose 107 H (74-99) mg/dL HDL Cholesterol 34.80 L (40.00-60.00) mg/dL
[2021-09-16] MEDS: LACTATED RINGERS 1,000 ML IV SCH (15:29)
[2021-09-17] MEDS: PANTOPRAZOLE 40 MG TABLET PO SCH (06:16)
[2021-09-17 09:01] VITALS: TEMP 97.5
[2021-09-17] MEDS: ATORVASTATIN 40 MG TAB PO SCH (10:21)
[2021-09-17] MEDS: ASPIRIN 81 MG PO SCH (10:22)
--- NOTE | 2021-09-17 10:34 | P.PN ---
Subjective Progress Note Date: 09/17/21 Principal diagnosis: GI bleed Patient doing well today. No lightheadedness. 3 bowel moments yesterday were brown in color. Hemoglobin 9.6 yesterday. Objective - Vital Signs Vital signs: Vital Signs Temp 97.5 F L 09/17/21 08:00 Pulse 65 09/17/21 08:00 Resp 18 09/17/21 08:00 BP 104/56 09/17/21 08:00 Pulse Ox 99 09/17/21 08:00 Intake & Output 09/16/21 09/17/21 09/17/21 19:59 06:59 18:59 Intake Total 180 Balance 180 Weight Intake: Oral 180 Other: Voiding Method # Voids 1 # Bowel Movements - Exam Abdomen: Soft, nontender, nondistended - Labs CBC & Chem 7: 09/16/21 10:45 09/16/21 10:45 Assessment and Plan (1) GI bleed Narrative/Plan: Patient doing well. May discharge. Outpatient upper and lower endoscopy advised. Current Visit: Yes Status: Acute Code(s): K92.2 - GASTROINTESTINAL HEMORRHAGE, UNSPECIFIED SNOMED Code(s): 08933235
[2021-09-17] MEDS: lisinopriL 10 MG TAB PO SCH (11:54)
[2021-09-17] MEDS: ENOXAPARIN 40 MG/0.4 ML SYRINGE SQ SCH (11:54)
[2021-09-17 13:04] LABS: Calcium 8.5 mg/dL (8.4-10.2); Potassium 4.5 mmol/L (3.5-5.1)
[2021-09-17 13:23] VITALS: BP 106/61; PULSE 59; RESP 16
--- NOTE | 2021-09-17 14:11 | P.DS ---
Providers Date of admission: 09/10/21 10:20 Expected date of discharge: 09/17/21 Attending physician: Rebecca Dong Consults: 09/10/21 10:21 Consult Physician Urgent Consulting Provider: Dread Sanderson Consult Reason/Comments: Anemia, GI bleed Do you want consulting provider notified?: Already Contacted 09/14/21 14:49 Consult Physician Routine Consulting Provider: George Mckee Consult Reason/Comments: CVA Do you want consulting provider notified?: Yes Primary care physician: [facility] Course: Discharge Diagnosis: Dizziness, suspect due to hypotension less likely due to TIA Acute GI bleed, acute blood loss anemia, thrombocytopenia Esophagitis and gastritis Non-STEMI type II possibly secondary to severe anemia Cardiomyopathy with ejection 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 He was also noted to have dark stools for approximately one week. In the ER he underwent an extensive evaluation. His found to have a hemoglobin of 6.7. He was also noted to have an elevated troponin. He was admitted and transfused 2 units of packed red blood cells. Cardiology was consulted. He underwent an echocardiogram which showed an ejection fraction 45-50% with paradoxical septal motion and hypokinetic LV. Cardiology did not recommend invasive intervention at this point in time. He was seen by surgery secondary to GI bleeding. On 09/12 he underwent EGD and colonoscopy. He was found to have antral gastritis, hiatal hernia, esophagitis, and poor colonic prep. Surgery recommended repeat colonoscopy as outpatient. His hemoglobin remained stable. He was not having any abdominal pain. He felt hungry. He tolerated a diet without any recurrent bleeding. On the morning of 09/14 arrangements are being made for discharge. He then had an episode of inability to speak and follow commands. Code stroke was activated. CT brain showed no acute intracranial hemorrhage or midline shift with mild to moderate diffuse age-related atrophy. CTA of the head and neck showed no significant abnormality. He was seen by neuro who was concern for TIA. They recommended aspirin and Plavix however due to GI bleed will start aspirin at this time. He developed Hypotension and his metoprolol dose was decreased, he again had hypotension after a dose and his metoprolol was discontinued. It was felt that his confusional episode was more related to hypotension than true TIA . After discontinuation of his metoprolol he had no additional episodes of hypotension or dizziness. He was determined stable for discharge home. Follow-up: New Rx lipitor and Protonix, Dr. Albarado in 1-2 weeks, Dr. Lopez for repeat colonoscpy. Patient seen and examined at bedside. No more dizziness, lightheadedness, nausea or vomiting. Vital signs reviewed and stable. General: non toxic, no distress, appears younger than stated age Derm: warm, dry Head: atraumatic, normocephalic, symmetric Eyes: EOMI, no lid lag, anicteric sclera Mouth: no lip lesion, mucus membranes moist Cardiovascular: S1S2 reg, no murmur, positive posterior tibial pulse bilateral, Lungs: CTA bilateral, no rhonchi, no rales , no accessory muscle use Abdominal: soft, nontender to palpation, no guarding, no appreciable organomegaly Ext: no gross muscle atrophy, no edema, no contractures Neuro: CN II-XI grossly intact, no focal neuro deficits Psych: Alert, oriented, appropriate affect A total of 42 minutes of time were spent preparing this complex discharge summary . Patient Condition at Discharge: Stable Plan - Discharge Summary New Discharge Prescriptions: New Atorvastatin [Lipitor] 40 mg PO DAILY #30 tab Pantoprazole [Protonix] 40 mg PO AC-BRKFST #30 tab Continue Aspirin EC [Ecotrin Low Dose] 81 mg PO DAILY #30 tablet. Cholecalciferol [Vitamin D3 (25 Mcg = 1000 Iu)] 1,000 unit PO DAILY lisinopriL [Zestril] 10 mg PO BID EPINEPHrine (Auto Inject) [Epipen] 0.3 mg IM ONCE PRN #1 pen PRN Reason: Anaphylaxis Discharge Medication List Aspirin EC [Ecotrin Low Dose] 81 mg PO DAILY #30 tablet. 05/03/14 [Rx] Cholecalciferol [Vitamin D3 (25 Mcg = 1000 Iu)] 1,000 unit PO DAILY 05/24/20 [History] lisinopriL [Zestril] 10 mg PO BID 06/23/20 [History] EPINEPHrine (Auto Inject) [Epipen] 0.3 mg IM ONCE PRN #1 pen 06/25/20 [Rx] Atorvastatin [Lipitor] 40 mg PO DAILY #30 tab 09/17/21 [Rx] Pantoprazole [Protonix] 40 mg PO AC-BRKFST #30 tab 09/17/21 [Rx] Follow up Appointment(s)/Referral(s): [facility], [NON-STAFF] - Humphrey Albarado DO [STAFF PHYSICIAN] - 2 Weeks Hari Varma MD [REFERRING] - 1-2 days Dread Sanderson MD [STAFF PHYSICIAN] - 1 Week Patient Instructions/Handouts: Heart Attack (DC), Dizziness (GEN) Activity/Diet/Wound Care/Special Instructions: Activity: as tolerated Diet: heart healthy Special Instructions: No driving from 6 months of last episode of dizziness Monitor blood pressure and heart rate at home. It was a pleasure caring for you. I wish you well on your health journey. Discharge/Stand Alone Forms: Who Do I Call?, Help In The Home Discharge Disposition: HOME SELF-CARE
== END 2021-09-17 14:12 | disposition home or self-care (01) | DRG 377 ==
LOC: EC 08:32 → 3SCARD 10:20
PROVIDERS: ADMIT Internal Medicine; ATTEND Internal Medicine
PROC: 30233N1 Transfusion of Nonautologous Red Blood Cells into Peripheral Vein, Percutaneous Approach (ICD-10-PCS; principal; 2021-09-10)
PROC: 0DB38ZX Excision of Lower Esophagus, Via Natural or Artificial Opening Endoscopic, Diagnostic (ICD-10-PCS; 2021-09-12 11:25)
PROC: 0DB78ZX Excision of Stomach, Pylorus, Via Natural or Artificial Opening Endoscopic, Diagnostic (ICD-10-PCS; 2021-09-12 11:25)
PROC: 0DJD8ZZ Inspection of Lower Intestinal Tract, Via Natural or Artificial Opening Endoscopic (ICD-10-PCS; 2021-09-12 11:25)
DX: K92.1 Melena (principal); I50.21 Acute systolic (congestive) heart failure; I21.A1 Myocardial infarction type 2; G93.40 Encephalopathy, unspecified; D62 Acute posthemorrhagic anemia; G45.9 Transient cerebral ischemic attack, unspecified; N17.9 Acute kidney failure, unspecified; I13.0 Hypertensive heart and chronic kidney disease with heart failure and stage 1 through stage 4 chronic kidney disease, or unspecified chronic kidney disease; I42.9 Cardiomyopathy, unspecified; D69.6 Thrombocytopenia, unspecified; I27.20 Pulmonary hypertension, unspecified; N18.30 Chronic kidney disease, stage 3 unspecified; F10.20 Alcohol dependence, uncomplicated; Z20.822 Contact with and (suspected) exposure to COVID-19; E78.5 Hyperlipidemia, unspecified; K29.70 Gastritis, unspecified, without bleeding; K22.70 Barrett's esophagus without dysplasia; K44.9 Diaphragmatic hernia without obstruction or gangrene; K42.9 Umbilical hernia without obstruction or gangrene; I25.10 Atherosclerotic heart disease of native coronary artery without angina pectoris; K20.90 Esophagitis, unspecified without bleeding; K31.9 Disease of stomach and duodenum, unspecified; I08.3 Combined rheumatic disorders of mitral, aortic and tricuspid valves; R00.1 Bradycardia, unspecified; I95.1 Orthostatic hypotension; T44.7X5A Adverse effect of beta-adrenoreceptor antagonists, initial encounter; G89.29 Other chronic pain; M79.604 Pain in right leg; D75.89 Other specified diseases of blood and blood-forming organs; K59.09 Other constipation; Z79.82 Long term (current) use of aspirin; Z79.899 Other long term (current) drug therapy; Z87.39 Personal history of other diseases of the musculoskeletal system and connective tissue; Z95.1 Presence of aortocoronary bypass graft; Z90.89 Acquired absence of other organs; Z96.641 Presence of right artificial hip joint; Z98.42 Cataract extraction status, left eye; Z98.41 Cataract extraction status, right eye; Z87.19 Personal history of other diseases of the digestive system; Z87.891 Personal history of nicotine dependence; Z98.890 Other specified postprocedural states; Z91.030 Bee allergy status; Z91.048 Other nonmedicinal substance allergy status; W19.XXXA Unspecified fall, initial encounter; Z82.49 Family history of ischemic heart disease and other diseases of the circulatory system
CPT/HCPCS: 36415; 43239; 45378; 70450; 70496; 70498; 70551; 71046; 80048; 80053; 80061; 82272; 82607; 82746; 83036; 83735; 83921; 84484; 85025; 85027; 85610; 85730; 86850; 86900; 86901; 86920; 87635; 88305; 93005; 93306; 94760; 96361; 96374; 96375; 99291